=== PATIENT | female | born 1985 | race Caucasian/White ===

== ENCOUNTER 2017-12-07 05:22 | Inpatient (IN) | payer OTHER ==
[2017-12-07] MEDS ORDERED: Sodium Chloride 0.9% 2.5 ML Syringe FLUSH PRN (05:48)
[2017-12-07] MEDS ORDERED: Citric Acid/Sodium Citrate Solution 30 ML Cup PO ONE (05:48)
[2017-12-07] MEDS ORDERED: Sodium Chloride 0.9% 10 ML Syringe FLUSH PRN (05:48)
[2017-12-07] MEDS ORDERED: Lactated Ringers 1,000 ML IV SCH ×2 (06:00→09:00)
[2017-12-07] MEDS ORDERED: Oxytocin/0.9 % Sodium Chloride 30 UNIT/500 ML BAG IV SCH (06:00)
[2017-12-07] MEDS ORDERED: ceFAZolin 2 GM in Premix Bag 1 BAG IV ONE (07:30)
[2017-12-07] MEDS ORDERED: ceFAZolin/Dextrose,Iso-Osmotic 2 GM/50 ML Duplex Bag IV ONE (07:33)
[2017-12-07] MEDS ORDERED: Morphine PF 1 MG/ML Amp ONE (07:34)
[2017-12-07] MEDS ORDERED: Octyl 2-Cyanoacrylate 1 Tube ONE (07:36)
--- NOTE | 2017-12-07 07:47 | PCM.PREANE ---
Preanesthetic Assessment - Procedure Proposed Procedure: 2nd - Anesthesia/Transfusion/Family Hx Anesthesia History: Prior Anesthesia Without Reaction Family History of Anesthesia Reaction: No Transfusion History: No Prior Transfusion(s) Intubation History: Unknown - Review of Systems General: Other (, term) Pulmonary: No Symptoms Cardiovascular: No Symptoms Gastrointestinal: Other (GERD) Neurological: Headache (treated with nightly propranolol during ), Gait Disturbance (due to ) - Physical Assessment NPO Status Date: 12/06/17 NPO Status Time: 18:00 Height: 5 ft 7 in Weight: 9.171 oz ASA Class: 2 Mental Status: Alert & Oriented x3 Airway Class: Mallampati = 1 Dentition: Reports: Normal Dentition Thyro-Mental Finger Breadths: 3 Mouth Opening Finger Breadths: 3 ROM/Head Extension: Full Lungs: Clear to Auscultation, Normal Respiratory Effort Cardiovascular: Regular Rate, Regular Rhythm, No Murmurs Other: landmarks on back not easily palpated - Lab Values: Laboratory Last Values WBC 8.91 K/uL (4.0-11.0) 12/06/17 12:56 RBC 4.55 M/uL (4.30-5.90) 12/06/17 12:56 Hgb 13.1 g/dL (12.0-16.0) 12/06/17 12:56 Hct 38.2 % (36.0-46.0) 12/06/17 12:56 MCV 84.0 fL (80.0-98.0) 12/06/17 12:56 MCH 28.8 pg (27.0-32.0) 12/06/17 12:56 MCHC 34.3 g/dL (31.0-37.0) 12/06/17 12:56 RDW Std Deviation 40.1 fl (28.0-62.0) 12/06/17 12:56 RDW Coeff of Sunita 13 % (11.0-15.0) 12/06/17 12:56 Plt Count 258 K/uL (150-400) 12/06/17 12:56 MPV 9.00 fL (7.40-12.00) 12/06/17 12:56 Nucleated RBC % 0.0 /100WBC 12/06/17 12:56 Nucleated RBCs # 0 K/uL 09/03/18 12:56 Free T4 1.05 ng/dL (0.76-1.46) 12/06/17 12:56 TSH 3rd Generation 0.42 uIU/mL (0.36-3.74) 12/06/17 12:56 Blood Type O POSITIVE 12/06/17 12:56 Antibody Screen NEGATIVE 12/06/17 12:56 - Allergies Allergies/Adverse Reactions: Allergies Allergy/AdvReac Type Severity Reaction Status Date / Time No Known Allergies Allergy Verified 12/07/17 05:55 - Blood Blood Available: Yes Product(s) Available: PRBC (T and S) - Anesthesia Plan Pre-Op Medication Ordered: Antacids - Acknowledgements Anesthesia Type Planned: Spinal Pt an Appropriate Candidate for the Planned Anesthesia: Yes Alternatives and Risks of Anesthesia Discussed w Pt/Guardian: Yes Pt/Guardian Understands and Agrees with Anesthesia Plan: Yes PreAnesthesia Questionnaire HEENT History: Reports: Other (See Below) Other HEENT History: wears glasses Cardiovascular History: Reports: None Respiratory History: Reports: None Gastrointestinal History: Reports: GERD, Irritable Bowel Syndrome Other Gastrointestinal History: some heartburn during Genitourinary History: Reports: None [employer]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: Musculoskeletal History: Reports: Fracture Other Musculoskeletal History: hx of fx wrist Neurological History: Reports: Headaches, Chronic, Migraines Other Neuro History: started during - take propranolol Psychiatric History: Reports: Anxiety Endocrine/Metabolic History: Reports: Obesity/BMI 30+ Hematologic History: Reports: None Immunologic History: Reports: None Oncologic (Cancer) History: Reports: None Dermatologic History: Reports: Other (See Below) Other Dermatologic History: PUPPS - Infectious Disease History Infectious Disease History: Reports: Human Papilloma Virus (HPV) - Past Surgical History HEENT Surgical History: Reports: Adenoidectomy, Tonsillectomy Female Surgical History: Reports: Section - SUBSTANCE USE Smoking Status *Q: Never Smoker Recreational Drug Use History: No - HOME MEDS Home Medications: Home Meds Propranolol [Inderal LA] 180 mg PO BEDTIME 12/01/17 [History] Sertraline [Zoloft] 50 mg PO BEDTIME 12/01/17 [History] - CURRENT (IN HOUSE) MEDS Current Meds: Current Medications Cefazolin Sodium/Dextrose 2 gm (/ Premix) 50 mls @ 100 mls/hr IV ONETIME ONE Stop: 12/07/17 07:59 Lactated Ringer's (Ringers, Lactated) 1,000 mls @ 500 mls/hr IV BOLUS TOÑA Last Admin: 12/07/17 07:10 Dose: 999 mls/hr Oxytocin/Sodium Chloride (Oxytocin 30 Unit/500 Ml-Ns) 30 unit in 500 mls @ 250 mls/hr IV TITRATE TOÑA Sodium Chloride (Saline Flush) 10 ml FLUSH ASDIRECTED PRN PRN Reason: Keep Vein Open Sodium Chloride (Saline Flush) 2.5 ml FLUSH ASDIRECTED PRN PRN Reason: Keep Vein Open Discontinued Medications Cefazolin Sodium/Dextrose (Ancef) Confirm Administered Dose 2 gm IV .STK-MED ONE Stop: 12/07/17 07:34 Citric Acid/Sodium Citrate (Bicitra Solution) 30 ml PO ONETIME ONE Stop: 12/07/17 05:49 Morphine Sulfate (Duramorph Pf) Confirm Administered Dose 1 mg .ROUTE .STK-MED ONE Stop: 12/07/17 07:35 Octyl Cyanoacrylate (Dermabond Advance) Confirm Administered Dose 1 applic .ROUTE .STK-MED ONE Stop: 12/07/17 07:37
[2017-12-07] MEDS ORDERED: Oxytocin/0.9 % Sodium Chloride 30 UNIT/500 ML BAG ONE (07:48)
[2017-12-07] MEDS ORDERED: Naloxone 0.4 MG/ML Syringe IVPUSH PRN (08:43)
[2017-12-07] MEDS ORDERED: Nalbuphine 10 MG/1 ML Vial IVPUSH PRN (08:43)
[2017-12-07] MEDS ORDERED: diphenhydrAMINE 50 MG/ML SDV IVPUSH PRN ×2 (08:43→09:00)
[2017-12-07] MEDS ORDERED: fentaNYL 100 MCG/2 ML SDV IVPUSH PRN (08:44)
[2017-12-07] MEDS ORDERED: Acetaminophen/oxyCODONE 325-5 MG Tab PO PRN ×2 (08:44→09:00)
[2017-12-07] MEDS ORDERED: Ondansetron 4 MG/2 ML SDV IV PRN (09:00)
[2017-12-07] MEDS ORDERED: Lanolin 100% Cream 7 GM Tube TOP PRN (09:00)
[2017-12-07] MEDS ORDERED: Bisacodyl 10 MG Supp RECTAL PRN (09:00)
--- NOTE | 2017-12-07 09:10 | PCM.OPNOTE ---
- General Post-Op/Procedure Note Date of Surgery/Procedure: 12/07/17 Operative Procedure(s): Repeat low transverse section Findings: Live born female infant with Apgars 9 & 9 and a weight of 3200 grams. Normal pelvis. Omental adhesions to enter abdominal wall. Pre Op Diagnosis: 1. Term at 39 weeks and 4 days. 2. History of previous Post-Op Diagnosis: Same Anesthesia Technique: Spinal Primary Surgeon: Delmis Youssef Twill Cutter: Luis Martell Pathology: None Fluid Replacement, Intraop: 1,200 EBL in mLs: 600 Complications: None known Condition: Good
[2017-12-07] MEDS: Ketorolac 30 MG/ML SDV IVPUSH SCH ×3 (09:20→21:05)
--- NOTE | 2017-12-07 09:38 | PCM.POSTAN ---
POST ANESTHESIA ASSESSMENT - MENTAL STATUS Mental Status: Alert, Oriented - RESPIRATORY Respiratory Status: Respiratory Rate WNL, Airway Patent, O2 Saturation Stable - CARDIOVASCULAR CV Status: Pulse Rate WNL, Blood Pressure Stable - GASTROINTESTINAL GI Status: No Symptoms - PAIN Pain Score: 0 - POST OP HYDRATION Hydration Status: Adequate & Stable
[2017-12-07] MEDS: Docusate Sodium 100 MG Cap PO SCH ×2 (11:44→21:05)
--- NOTE | 2017-12-07 11:54 | OR ---
SURGEON: Delmis Youssef M.D. DATE OF PROCEDURE: 12/07/2017 PREOPERATIVE DIAGNOSES: 1. 39 and 4/7 week intrauterine . 2. Prior delivery, desires repeat section. 3. Group B strep negative. Rubella immune. POSTOPERATIVE DIAGNOSES: 1. 39 and 4/7 week intrauterine . 2. Prior delivery, desires repeat section. 3. Group B strep negative. Rubella immune. PROCEDURE: Repeat low-transverse section. LAB ASSISTANT: Luis Martell MS4. ANESTHESIA: Spinal. ESTIMATED BLOOD LOSS: 600 mL. FLUIDS: 1200 mL crystalloid. FINDINGS: Liveborn female, scores 9 and 9, weighing 3200 g. Normal-appearing uterus, tubes, and ovaries. Omental adhesions to the anterior abdominal wall were noted. COMPLICATIONS: None known. DISPOSITION: Stable to recovery. BRIEF HISTORY: This is a 32-year-old female, she is G3, P1-0-1-1 with 1 prior primary section in 2015 due to arrested labor. Her calculated likelihood of a successful was between 50% and 60%, therefore she desires to proceed with a repeat delivery with risks discussed including bleeding, infection, injury to bowel, bladder, blood vessels, ureters, or other organs, risk of thromboembolic event, risk of anesthesia. Understanding all these risks, she does desire to proceed. DESCRIPTION OF PROCEDURE: With the patient in left tilt position, under adequate spinal analgesia, the abdomen was prepped with chlorhexidine and draped in usual fashion for abdominal surgery. SCDs were in place. West catheter had been placed. She had received 2 g Ancef IV and an appropriate time-out was held. After documentation of adequate analgesia, the prior cicatrix was excised. The incision was carried through the subcutaneous tissue. The fascia, which was scored transversely in the midline. The fascial incision was extended laterally using curved Najera scissors. The fascia was elevated from the underlying rectus muscle using sharp and blunt dissection. The rectus muscles were in the midline. The peritoneum was entered sharply. A finger was placed into the peritoneal cavity. There were some omental adhesions laterally. Otherwise no adhesion of bowel or uterus. The incision was extended using sharp and blunt dissection. The Luis O retractor was placed. The visceroperitoneum over the lower uterine segment was incised to develop an adequate bladder flap. A transverse curvilinear incision was made over the lower uterine segment with a scalpel. A finger was used to enter the amniotic cavity, clear fluid was noted. The incision was extended using blunt dissection. The head was delivered via the uterine incision. The infant was bulb suctioned by nose and mouth. The infant was noted to be in the occiput posterior position. With fundal pressure, the infant was delivered via the uterine incision. The infant was a liveborn female, scores 9 and 9, weighing 3200 g. The cord was doubly clamped and cut and the infant was handed to the nurse in attendance at delivery. Cord blood was collected for cord ABGs as well as routine cord blood sampling. Pitocin was initiated after delivery of the infant with good uterine contraction. Placenta was removed by manual extraction. The uterus was cleaned with a dry laparotomy tape. The cervix was opened with ring forceps. The uterine incision was closed with running locked suture of 0 Polysorb followed by an imbricating layer of 0 Polysorb. Three additional [id number] sutures were placed for complete hemostasis. Inspection of the uterine incision revealed complete hemostasis. Paracolic gutters were cleaned and the tubes and ovaries appeared normal. Uterine incision was again inspected, it was hemostatic. Therefore the Luis retractor was removed. The uterine incision was finally again inspected, it remained completely hemostatic. The rectus muscle and peritoneum were loosely approximated in the midline using a running mattress suture of 0 Polysorb. The posterior aspect of the fascia was inspected and there were no areas of bleeding. The fascial incision was closed with a running suture of 0 Polysorb. Subcutaneous tissue was irrigated. Any areas of bleeding that were noted were cauterized. The skin was closed with a running subcuticular suture of 3-0 Monocryl followed by Dermabond. Final sponge, needle, and instrument counts were reported as correct. There were no known complications. The mother is in recovery in good condition. is in nursery in good condition. LILIANA SILVA /[id number]
[2017-12-07] MEDS: Propranolol 60 MG Cap.ER PO SCH (21:05)
[2017-12-07] MEDS: Sertraline 50 MG Tab PO SCH (21:05)
[2017-12-08] MEDS: Ketorolac 30 MG/ML SDV IVPUSH SCH ×2 (02:48→09:08)
--- NOTE | 2017-12-08 08:11 | PCM.PNPP ---
<Luis Martell - Last Filed: 12/08/17 08:22> - General Info Date of Service: 12/08/17 Subjective Update: Patient is doing well. Tired from feeding throughout the night and complains of moderate incisional pain. Last pain medication received at 3 or 4 AM. Functional Status: Reports: Pain Controlled, Tolerating Diet, Ambulating, Urinating - Review of Systems General: Reports: No Symptoms Pulmonary: Reports: No Symptoms Cardiovascular: Reports: No Symptoms Gastrointestinal: Reports: No Symptoms - General Info Date of Service: 12/08/17 - Patient Data Vital Signs - Most Recent: Last Vital Signs Temp 97.7 F 12/08/17 05:32 Pulse 69 12/08/17 06:00 Resp 14 12/08/17 06:00 BP 108/59 L 12/08/17 05:32 Pulse Ox 96 12/08/17 06:00 Weight - Most Recent: 260 g I&O - Last 24 Hours: Intake & Output 12/07/17 12/08/17 12/08/17 22:59 06:59 14:59 Intake Total 2375 Output Total 1300 Balance 1075 Lab Results - Last 24 Hours: Laboratory Results - last 24 hr 12/08/17 Range/Units 05:40 Hgb 10.6 L (12.0-16.0) g/dL Hct 31.9 L (36.0-46.0) % Med Orders - Current: Current Medications Bisacodyl (Dulcolax) 10 mg RECTAL ONETIME PRN PRN Reason: Constipation Diphenhydramine HCl (Benadryl) 25 mg IVPUSH Q4H PRN PRN Reason: Itching Stop: 12/08/17 08:43 Diphenhydramine HCl (Benadryl) 25 mg IVPUSH Q6H PRN PRN Reason: Itching or Nausea Last Admin: 12/07/17 11:25 Dose: 25 mg Docusate Sodium (Colace) 100 mg PO BID TOÑA Last Admin: 12/07/17 21:05 Dose: 100 mg Emollient Ointment (Lansinoh Hpa) 0 gm TOP ASDIRECTED PRN PRN Reason: Sore Nipples Last Admin: 12/08/17 04:25 Dose: 1 tube Fentanyl (Sublimaze) 25 - 50 mcg IVPUSH Q30M PRN PRN Reason: Pain Lactated Ringer's (Ringers, Lactated) 1,000 mls @ 125 mls/hr IV ASDIRECTED [facility] Last Admin: 12/07/17 14:12 Dose: 125 mls/hr Ibuprofen (Motrin) 800 mg PO Q8H PRN PRN Reason: mild pain or fever Ketorolac Tromethamine (Toradol) 30 mg IVPUSH Q6H TOÑA Stop: 12/08/17 09:01 Last Admin: 12/08/17 02:48 Dose: 30 mg Nalbuphine HCl (Nubain) 5 mg IVPUSH Q3H PRN PRN Reason: Pruritis Stop: 12/08/17 08:43 Naloxone HCl (Narcan) 0.1 mg IVPUSH ONETIME PRN PRN Reason: Other Stop: 12/08/17 08:43 Ondansetron HCl (Zofran) 4 mg IV Q4H PRN PRN Reason: Nausea/Vomiting Oxycodone/Acetaminophen (Percocet 325-5 Mg) 1 - 2 tab PO Q6H PRN PRN Reason: Pain Stop: 12/09/17 14:00 Oxycodone/Acetaminophen (Percocet 325-5 Mg) 1 tab PO Q4H PRN PRN Reason: Pain (moderate 4-6) Oxycodone/Acetaminophen (Percocet 325-5 Mg) 2 tab PO Q4H PRN PRN Reason: Pain (moderate 4-6) Propranolol HCl (Inderal La) 180 mg PO BEDTIME [facility] Last Admin: 12/07/17 21:05 Dose: 180 mg Sertraline HCl (Zoloft) 50 mg PO BEDTIME [facility] Last Admin: 12/07/17 21:05 Dose: 50 mg Discontinued Medications Cefazolin Sodium/Dextrose (Ancef) Confirm Administered Dose 2 gm IV .STK-MED ONE Stop: 12/07/17 07:34 Citric Acid/Sodium Citrate (Bicitra Solution) 30 ml PO ONETIME ONE Stop: 12/07/17 05:49 Last Admin: 12/07/17 07:48 Dose: 30 ml Cefazolin Sodium/Dextrose 2 gm (/ Premix) 50 mls @ 100 mls/hr IV ONETIME ONE Stop: 12/07/17 07:59 Last Admin: 12/07/17 20:03 Dose: Not Given Lactated Ringer's (Ringers, Lactated) 1,000 mls @ 500 mls/hr IV BOLUS TOÑA Last Admin: 12/07/17 07:10 Dose: 999 mls/hr Oxytocin/Sodium Chloride (Oxytocin 30 Unit/500 Ml-Ns) 30 unit in 500 mls @ 250 mls/hr IV TITRATE TOÑA Oxytocin/Sodium Chloride (Oxytocin 30 Unit/500 Ml-Ns) Confirm Administered Dose 30 unit in 500 mls @ as directed .ROUTE .STK-MED ONE Stop: 12/07/17 07:49 Last Admin: 12/07/17 20:03 Dose: Not Given Morphine Sulfate (Duramorph Pf) Confirm Administered Dose 1 mg .ROUTE .STK-MED ONE Stop: 12/07/17 07:35 Octyl Cyanoacrylate (Dermabond Advance) Confirm Administered Dose 1 applic .ROUTE .STK-MED ONE Stop: 12/07/17 07:37 Sodium Chloride (Saline Flush) 10 ml FLUSH ASDIRECTED PRN PRN Reason: Keep Vein Open Sodium Chloride (Saline Flush) 2.5 ml FLUSH ASDIRECTED PRN PRN Reason: Keep Vein Open - Infant Interaction Infant Disposition, : to Nursery Feeding: Continues to Breastfeed - Recovery Exam Fundal Tone: Firm Fundal Level: 2 Fingerbreadths Below Umbilicus Fundal Placement: Midline Lochia Amount: Scant Lochia Color: Rubra/Red Perineum Description: Intact, Minimal Bruising/Swelling Episiotomy/Laceration: None Bladder Status: Voiding Urinary Elimination: Voided - Exam General: Alert, Oriented Lungs: Clear to Auscultation, Normal Respiratory Effort Cardiovascular: Regular Rate, Regular Rhythm Extremities: Normal Inspection Wound/Incisions: Dressing Dry and Intact - Problem List Review Problem List Initiated/Reviewed/Updated: Yes - Assessment Assessment:: 32 year old female POD1 after repeat low transverse section - Plan Plan:: 1. Routine cares 2. Anticipate discharge home tomorrow or Wednesday <Delmis Youssef - Last Filed: 12/08/17 08:51> - Patient Data Vital Signs - Most Recent: Last Vital Signs Temp 36.5 C 12/08/17 05:32 Pulse 69 12/08/17 06:00 Resp 18 12/08/17 08:00 BP 108/59 L 12/08/17 05:32 Pulse Ox 96 12/08/17 08:15 I&O - Last 24 Hours: Intake & Output 12/07/17 12/08/17 12/08/17 22:59 06:59 14:59 Intake Total 2375 Output Total 1300 Balance 1075 Lab Results - Last 24 Hours: Laboratory Results - last 24 hr 12/08/17 Range/Units 05:40 Hgb 10.6 L (12.0-16.0) g/dL Hct 31.9 L (36.0-46.0) % Med Orders - Current: Current Medications Bisacodyl (Dulcolax) 10 mg RECTAL ONETIME PRN PRN Reason: Constipation Diphenhydramine HCl (Benadryl) 25 mg IVPUSH Q6H PRN PRN Reason: Itching or Nausea Last Admin: 12/07/17 11:25 Dose: 25 mg Docusate Sodium (Colace) 100 mg PO BID [facility] Last Admin: 12/07/17 21:05 Dose: 100 mg Emollient Ointment (Lansinoh Hpa) 0 gm TOP ASDIRECTED PRN PRN Reason: Sore Nipples Last Admin: 12/08/17 04:25 Dose: 1 tube Fentanyl (Sublimaze) 25 - 50 mcg IVPUSH Q30M PRN PRN Reason: Pain Lactated Ringer's (Ringers, Lactated) 1,000 mls @ 125 mls/hr IV ASDIRECTED [facility] Last Admin: 12/07/17 14:12 Dose: 125 mls/hr Ibuprofen (Motrin) 800 mg PO Q8H PRN PRN Reason: mild pain or fever Ketorolac Tromethamine (Toradol) 30 mg IVPUSH Q6H [facility] Stop: 12/08/17 09:01 Last Admin: 12/08/17 02:48 Dose: 30 mg Ondansetron HCl (Zofran) 4 mg IV Q4H PRN PRN Reason: Nausea/Vomiting Oxycodone/Acetaminophen (Percocet 325-5 Mg) 1 - 2 tab PO Q6H PRN PRN Reason: Pain Stop: 12/09/17 14:00 Oxycodone/Acetaminophen (Percocet 325-5 Mg) 1 tab PO Q4H PRN PRN Reason: Pain (moderate 4-6) Oxycodone/Acetaminophen (Percocet 325-5 Mg) 2 tab PO Q4H PRN PRN Reason: Pain (moderate 4-6) Propranolol HCl (Inderal La) 180 mg PO BEDTIME [facility] Last Admin: 12/07/17 21:05 Dose: 180 mg Sertraline HCl (Zoloft) 50 mg PO BEDTIME TOÑA Last Admin: 12/07/17 21:05 Dose: 50 mg Discontinued Medications Cefazolin Sodium/Dextrose (Ancef) Confirm Administered Dose 2 gm IV .STK-MED ONE Stop: 12/07/17 07:34 Citric Acid/Sodium Citrate (Bicitra Solution) 30 ml PO ONETIME ONE Stop: 12/07/17 05:49 Last Admin: 12/07/17 07:48 Dose: 30 ml Diphenhydramine HCl (Benadryl) 25 mg IVPUSH Q4H PRN PRN Reason: Itching Stop: 12/08/17 08:43 Cefazolin Sodium/Dextrose 2 gm (/ Premix) 50 mls @ 100 mls/hr IV ONETIME ONE Stop: 12/07/17 07:59 Last Admin: 12/07/17 20:03 Dose: Not Given Lactated Ringer's (Ringers, Lactated) 1,000 mls @ 500 mls/hr IV BOLUS [facility] Last Admin: 12/07/17 07:10 Dose: 999 mls/hr Oxytocin/Sodium Chloride (Oxytocin 30 Unit/500 Ml-Ns) 30 unit in 500 mls @ 250 mls/hr IV TITRATE TOÑA Oxytocin/Sodium Chloride (Oxytocin 30 Unit/500 Ml-Ns) Confirm Administered Dose 30 unit in 500 mls @ as directed .ROUTE .STK-MED ONE Stop: 12/07/17 07:49 Last Admin: 12/07/17 20:03 Dose: Not Given Morphine Sulfate (Duramorph Pf) Confirm Administered Dose 1 mg .ROUTE .STK-MED ONE Stop: 12/07/17 07:35 Nalbuphine HCl (Nubain) 5 mg IVPUSH Q3H PRN PRN Reason: Pruritis Stop: 12/08/17 08:43 Naloxone HCl (Narcan) 0.1 mg IVPUSH ONETIME PRN PRN Reason: Other Stop: 12/08/17 08:43 Octyl Cyanoacrylate (Dermabond Advance) Confirm Administered Dose 1 applic .ROUTE .STK-MED ONE Stop: 12/07/17 07:37 Sodium Chloride (Saline Flush) 10 ml FLUSH ASDIRECTED PRN PRN Reason: Keep Vein Open Sodium Chloride (Saline Flush) 2.5 ml FLUSH ASDIRECTED PRN PRN Reason: Keep Vein Open - Problem List & Annotations (1) Previous delivery affecting , delivered SNOMED Code(s): 288425860 Code(s): O34.219 - MATERNAL CARE FOR UNSP TYPE SCAR FROM PREVIOUS DEL Status: Acute Current Visit: Yes (2) delivery delivered SNOMED Code(s): 334555813 Code(s): O82 - ENCOUNTER FOR DELIVERY WITHOUT INDICATION Status: Acute Current Visit: No - Problem List Review Problem List Initiated/Reviewed/Updated: Yes - My Orders Last 24 Hours: My Active Orders 12/07/17 09:00 Ambulate [RC] PER UNIT ROUTINE Communication Order [RC] PER UNIT ROUTINE Communication Order [RC] PER UNIT ROUTINE Communication Order [RC] Per Unit Routine May Shower [RC] ASDIRECTED Notify Provider Intake and Out [RC] ASDIRECTED Notify Provider Vital Signs [RC] ASDIRECTED RT Incentive Spirometry [RC] Q2HWA Acetaminophen/oxyCODONE [Percocet 325-5 MG] 1 tab PO Q4H PRN Acetaminophen/oxyCODONE [Percocet 325-5 MG] 2 tab PO Q4H PRN Bisacodyl [Dulcolax] 10 mg RECTAL ONETIME PRN Docusate Sodium [Colace] 100 mg PO BID Ibuprofen [Motrin] 800 mg PO Q8H PRN Ketorolac [Toradol] 30 mg IVPUSH Q6H Lactated Ringers [Ringers, Lactated] 1,000 ml IV ASDIRECTED Lanolin [Lansinoh HPA] See Dose Instructions TOP ASDIRECTED PRN Ondansetron [Zofran] 4 mg IV Q4H PRN diphenhydrAMINE [Benadryl] 25 mg IVPUSH Q6H PRN Abdominal Binder [OM.PC] Urgent Assess Lochia [WOMSER] Per Unit Routine Assess Uterine Involution [WOMSER] Per Unit Routine Breast Pump [WOMSER] Per Unit Routine Peripheral IV Discontinue [OM.PC] Routine Sequential Compression Device [OM.PC] Per Unit Routine 12/07/17 21:00 Propranolol [Inderal LA] 180 mg PO BEDTIME Sertraline [Zoloft] 50 mg PO BEDTIME 12/07/17 Dinner Regular Diet [DIET] - Assessment Assessment:: patient was seen and examined by me and I agree with above. Stable POD 1 c- section. Thyroid labs are available and are normal, patient notified. - Plan Plan:: Agree with above.
[2017-12-08] MEDS: Docusate Sodium 100 MG Cap PO SCH ×2 (09:09→21:05)
--- NOTE | 2017-12-08 09:46 | PCM48HPAN ---
Post Anesthesia Note - EVALUATION WITHIN 48HRS OF ANESTHETIC Vital Signs in Normal Range: Yes Patient Participated in Evaluation: Yes Respiratory Function Stable: Yes Airway Patent: Yes Cardiovascular Function Stable: Yes Hydration Status Stable: Yes Pain Control Satisfactory: Yes Nausea and Vomiting Control Satisfactory: Yes Mental Status Recovered: Yes Resp Rate: 18
[2017-12-08] MEDS: Acetaminophen/oxyCODONE 325-5 MG Tab PO PRN ×3 (11:36→21:06)
[2017-12-08] MEDS: Ibuprofen 800 MG Tab PO PRN (16:37)
[2017-12-08] MEDS: Propranolol 60 MG Cap.ER PO SCH (21:05)
[2017-12-08] MEDS: Sertraline 50 MG Tab PO SCH (21:05)
[2017-12-09] MEDS: Ibuprofen 800 MG Tab PO PRN (01:07)
[2017-12-09] MEDS: Acetaminophen/oxyCODONE 325-5 MG Tab PO PRN (01:08)
--- NOTE | 2017-12-09 08:13 | PCM.PNPP ---
- General Info Date of Service: 12/09/17 Functional Status: Reports: Pain Controlled, Tolerating Diet, Ambulating, Urinating - Review of Systems General: Denies: Fever, Weakness, Fatigue Pulmonary: Denies: Shortness of Breath, Pleuritic Chest Pain, Cough Cardiovascular: Denies: Chest Pain, Palpitations, Dyspnea on Exertion Gastrointestinal: Denies: Abdominal Pain Genitourinary: Denies: Dysuria - General Info Date of Service: 12/09/17 - Patient Data Vital Signs - Most Recent: Last Vital Signs Temp 36.6 C 12/08/17 21:00 Pulse 78 12/08/17 21:00 Resp 16 12/08/17 21:00 BP 107/74 12/08/17 21:00 Pulse Ox 96 12/08/17 21:00 Weight - Most Recent: 260 g Med Orders - Current: Current Medications Bisacodyl (Dulcolax) 10 mg RECTAL ONETIME PRN PRN Reason: Constipation Diphenhydramine HCl (Benadryl) 25 mg IVPUSH Q6H PRN PRN Reason: Itching or Nausea Last Admin: 12/07/17 11:25 Dose: 25 mg Docusate Sodium (Colace) 100 mg PO BID [facility] Last Admin: 12/08/17 21:05 Dose: 100 mg Emollient Ointment (Lansinoh Hpa) 0 gm TOP ASDIRECTED PRN PRN Reason: Sore Nipples Last Admin: 12/08/17 04:25 Dose: 1 tube Fentanyl (Sublimaze) 25 - 50 mcg IVPUSH Q30M PRN PRN Reason: Pain Lactated Ringer's (Ringers, Lactated) 1,000 mls @ 125 mls/hr IV ASDIRECTED [facility] Last Admin: 12/07/17 14:12 Dose: 125 mls/hr Ibuprofen (Motrin) 800 mg PO Q8H PRN PRN Reason: mild pain or fever Last Admin: 12/09/17 01:07 Dose: 800 mg Ondansetron HCl (Zofran) 4 mg IV Q4H PRN PRN Reason: Nausea/Vomiting Oxycodone/Acetaminophen (Percocet 325-5 Mg) 1 - 2 tab PO Q6H PRN PRN Reason: Pain Stop: 12/09/17 14:00 Oxycodone/Acetaminophen (Percocet 325-5 Mg) 1 tab PO Q4H PRN PRN Reason: Pain (moderate 4-6) Last Admin: 12/09/17 01:08 Dose: 1 tab Oxycodone/Acetaminophen (Percocet 325-5 Mg) 2 tab PO Q4H PRN PRN Reason: Pain (moderate 4-6) Propranolol HCl (Inderal La) 180 mg PO BEDTIME [facility] Last Admin: 12/08/17 21:05 Dose: 180 mg Sertraline HCl (Zoloft) 50 mg PO BEDTIME [facility] Last Admin: 12/08/17 21:05 Dose: 50 mg Discontinued Medications Cefazolin Sodium/Dextrose (Ancef) Confirm Administered Dose 2 gm IV .STK-MED ONE Stop: 12/07/17 07:34 Citric Acid/Sodium Citrate (Bicitra Solution) 30 ml PO ONETIME ONE Stop: 12/07/17 05:49 Last Admin: 12/07/17 07:48 Dose: 30 ml Diphenhydramine HCl (Benadryl) 25 mg IVPUSH Q4H PRN PRN Reason: Itching Stop: 12/08/17 08:43 Cefazolin Sodium/Dextrose 2 gm (/ Premix) 50 mls @ 100 mls/hr IV ONETIME ONE Stop: 12/07/17 07:59 Last Admin: 12/07/17 20:03 Dose: Not Given Lactated Ringer's (Ringers, Lactated) 1,000 mls @ 500 mls/hr IV BOLUS [facility] Last Admin: 12/07/17 07:10 Dose: 999 mls/hr Oxytocin/Sodium Chloride (Oxytocin 30 Unit/500 Ml-Ns) 30 unit in 500 mls @ 250 mls/hr IV TITRATE [facility] Oxytocin/Sodium Chloride (Oxytocin 30 Unit/500 Ml-Ns) Confirm Administered Dose 30 unit in 500 mls @ as directed .ROUTE .STK-MED ONE Stop: 12/07/17 07:49 Last Admin: 12/07/17 20:03 Dose: Not Given Ketorolac Tromethamine (Toradol) 30 mg IVPUSH Q6H [facility] Stop: 12/08/17 09:01 Last Admin: 12/08/17 09:08 Dose: 30 mg Morphine Sulfate (Duramorph Pf) Confirm Administered Dose 1 mg .ROUTE .STK-MED ONE Stop: 12/07/17 07:35 Nalbuphine HCl (Nubain) 5 mg IVPUSH Q3H PRN PRN Reason: Pruritis Stop: 12/08/17 08:43 Naloxone HCl (Narcan) 0.1 mg IVPUSH ONETIME PRN PRN Reason: Other Stop: 12/08/17 08:43 Octyl Cyanoacrylate (Dermabond Advance) Confirm Administered Dose 1 applic .ROUTE .STK-MED ONE Stop: 12/07/17 07:37 Sodium Chloride (Saline Flush) 10 ml FLUSH ASDIRECTED PRN PRN Reason: Keep Vein Open Sodium Chloride (Saline Flush) 2.5 ml FLUSH ASDIRECTED PRN PRN Reason: Keep Vein Open - Interaction Infant Disposition, : at Bedside Interaction: Holding Infant Infant Feeding: Continues to Breastfeed Support Person: - Recovery Exam Fundal Tone: Firm Fundal Level: 1 Fingerbreadths Below Umbilicus Fundal Placement: Midline Lochia Amount: Scant Lochia Color: Rubra/Red Perineum Description: Intact, Minimal Bruising/Swelling Episiotomy/Laceration: None Bladder Status: Voiding Urinary Elimination: Voided - Exam General: Alert, Oriented Neck: Supple Lungs: Clear to Auscultation, Normal Respiratory Effort Cardiovascular: Regular Rate, Regular Rhythm GI/Abdominal Exam: Normal Bowel Sounds, Soft, No Distention, No Mass Extremities: Normal Inspection, Non-Tender, Normal Capillary Refill, Pedal Edema (1+) Skin: Warm, Dry, Intact Wound/Incisions: Healing Well Psy/Mental Status: Alert - Problem List & Annotations (1) delivery delivered SNOMED Code(s): 008626441 Code(s): O82 - ENCOUNTER FOR DELIVERY WITHOUT INDICATION Status: Acute Current Visit: No - Problem List Review Problem List Initiated/Reviewed/Updated: Yes - Assessment Assessment:: POD #2 s/p RLTCS. Minimal pain and lochia. Breast feeding well. Discharge home today. - Plan Plan:: Discharge instructions reviewed. Pelvic rest for 6 weeks. Continue PNV while breast feeding. Rx for percocet to use as needed for pain. Instructed patient to call if she develops fever greater than 101 or bleeding through a large pad an hour. No lifting greater than 10 lbs for 6 weeks. F/U with [facility] in 2 and 6 weeks.
[2017-12-09] MEDS: Docusate Sodium 100 MG Cap PO SCH (08:27)
[2017-12-09 08:50] VITALS: BP 112/68
== END 2017-12-09 10:45 | disposition home or self-care (01) | DRG 766 ==
LOC: MW.OB 05:22
PROVIDERS: ADMIT Obstetrics & Gynecology; ATTEND Obstetrics & Gynecology
PROC: 10D00Z1 Extraction of Products of Conception, Low, Open Approach (ICD-10-PCS; principal; 2017-12-07)
DX: O34.211 Maternal care for low transverse scar from previous cesarean delivery (principal); Z3A.39 39 weeks gestation of pregnancy; Z37.0 Single live birth
CPT/HCPCS: 36415; 59025; 84439; 84443; 85014; 85018; 85027; 86850; 86900; 86901; A9270-GY; J0690; J1200; J1885; J2274; J7120

== ENCOUNTER 2019-03-19 18:19 | Emergency (ER) | payer OTHER ==
[2019-03-19] MEDS ORDERED: Sodium Chloride 0.9% 1,000 ML IV ONE (19:00)
[2019-03-19 19:50] LABS: BLOOD UREA NITROGEN,BUN 6 mg/dL (7.0-18.0); CHLORIDE,CL 100 mmol/L (98-107); GLUCOSE RANDOM 97 mg/dL (74-106); POTASSIUM,K 3.6 mmol/L (3.5-5.1); SODIUM,NA 135 mmol/L (136-145)
--- NOTE | 2019-03-19 20:24 | EDM.PDOC ---
ED HPI GENERAL MEDICAL PROBLEM - General Chief Complaint: Gastrointestinal Problem Stated Complaint: VOMITING Time Seen by Provider: 03/19/19 19:20 Source of Information: Reports: Patient History Limitations: Reports: No Limitations - History of Present Illness INITIAL COMMENTS - FREE TEXT/NARRATIVE: HISTORY AND PHYSICAL: History of present illness: Patient is a 33-year-old female who presents to the ED today with concern of vomiting and one episode of diarrhea since yesterday. Patient states she is approximately 14 weeks in gestation and follows along with Dr. Youssef at [facility]. Patient states she did have an initial ultrasound and baby was in uterus with a heartbeat. Patient states she also has an appointment tomorrow with Dr. Youssef for OB check up. Patient states starting yesterday she started vomiting and started having abdominal pain around her umbilicus. Patient states that she had an umbilical hernia repair with Dr. Paez which is the area that started hurting with vomiting. Patient states that the abdominal pain is a little bit better today and she is only had one episode of vomiting today with one episode of diarrhea today. Patient states that since this afternoon she has been able to eat and drink and keep fluids down. Patient denies any vaginal bleeding or discharge or any other symptoms or concerns. Patient denies fever, chills, chest pain, shortness of breath, or cough. Denies headache, neck stiff ness, change in vision, syncope, or near syncope. Denies dysuria. Has not noted any blood in urine or stool. Patient has been eating and drinking appropriately. Review of systems: As per history of present illness and below otherwise all systems reviewed and negative. Past medical history: As per history of present illness and as reviewed below otherwise noncontributory. Surgical history: As per history of present illness and as reviewed below otherwise noncontributory. Social history: See social history for further information Family history: As per history of present illness and as reviewed below otherwise noncontributory. Physical exam: General: Patient is alert, oriented, and in no acute distress. Patient laying comfortably on exam table. HEENT: Atraumatic, normocephalic, pupils equal and reactive bilaterally, negative for conjunctival pallor or scleral icterus, mucous membranes moist, TMs normal bilaterally, throat clear, neck supple, nontender, trachea midline. No drooling or trismus noted. No meningeal signs. No hot potato voice noted. Lungs: Clear to auscultation, breath sounds equal bilaterally, chest nontender. Heart: S1S2, regular rate and rhythm without overt murmur Abdomen: Soft, nondistended, nontender. Scarring of umbilicus consistent with surgical history. No tenderness or masses felt of this area. Negative for masses or hepatosplenomegaly. Negative for costovertebral tenderness. Pelvis: Stable nontender. Genitourinary: Deferred. Rectal: Deferred. Skin: Intact, warm, dry. No lesions or rashes noted. Extremities: Atraumatic, negative for cords or calf pain. Neurovascular unremarkable. Neuro: Awake, alert, oriented. Cranial nerves II through XII unremarkable. Cerebellum unremarkable. Motor and sensory unremarkable throughout. Exam nonfocal. Notes: Patient has been able to tolerate by mouth intake in the ED today. Discussed the importance for follow-up with her LINK MACHINE OPERATOR provider and Dr. Paez as scheduled and as discussed. Voices understanding and is agreeable to plan of care. Denies any further questions or concerns at this time. Diagnostics: CBC, CMP, UA, lipase, influenza, 2nd trimester US, US limited Therapeutics: NS Prescription: None Impression: H/O vomiting H/O abdominal pain Plan: 1. Tylenol as needed for pain management. This is safe to use in . 2. Follow up with your LINK MACHINE OPERATOR in the morning as scheduled as discussed. Also follow up with Dr. Paez as discussed. 3. Return to the ED as needed and as discussed. Definitive disposition and diagnosis as appropriate pending reevaluation and review of above. abdominal Pain Score (Numeric/FACES): 4 - Related Data Allergies Allergy/AdvReac Type Severity Reaction Status Date / Time Dairy Products Allergy Stomach Verified 03/19/19 18:47 Upset Home Meds: Home Meds Sertraline [Zoloft] 100 mg PO DAILY 12/01/17 [History] Past Medical History HEENT History: Reports: Other (See Below) Other HEENT History: wears glasses Cardiovascular History: Reports: None Respiratory History: Reports: None Gastrointestinal History: Reports: GERD, Irritable Bowel Syndrome Other Gastrointestinal History: some heartburn during Genitourinary History: Reports: None LINK MACHINE OPERATOR History: Reports: Musculoskeletal History: Reports: Fracture Other Musculoskeletal History: hx of fx wrist Neurological History: Reports: Headaches, Chronic, Migraines Other Neuro History: started during - take propranolol Psychiatric History: Reports: Anxiety Endocrine/Metabolic History: Reports: Obesity/BMI 30+ Hematologic History: Reports: None Immunologic History: Reports: None Oncologic (Cancer) History: Reports: None Dermatologic History: Reports: Other (See Below) Other Dermatologic History: PUPPS - Infectious Disease History Infectious Disease History: Reports: None - Past Surgical History Head Surgeries/Procedures: Reports: None HEENT Surgical History: Reports: Adenoidectomy, Tonsillectomy Female Surgical History: Reports: Section Other Female Surgeries/Procedures: c/section x2 Social & Family History - Family History Family Medical History: Noncontributory HEENT: Reports: None Cardiac: Reports: Heart Valve Replacement, Hypertension Respiratory: Reports: None GI: Reports: None Musculoskeletal: Reports: Arthritis Psychiatric: Reports: Depression Endocrine/Metabolic: Reports: Diabetes, type II Oncologic: Reports: Ovarian - Tobacco Use Smoking Status *Q: Never Smoker - Recreational Drug Use Recreational Drug Use: No ED ROS GENERAL - Review of Systems Review Of Systems: Comprehensive ROS is negative, except as noted in HPI. ED EXAM, GENERAL - Physical Exam Exam: See Below (see dictation) Course - Vital Signs Last Recorded V/S: Last Vital Signs Temp 97.4 F 03/19/19 18:46 Pulse 97 03/19/19 18:46 Resp 20 03/19/19 18:46 BP 110/77 03/19/19 18:46 Pulse Ox 95 03/19/19 18:46 - Orders/Labs/Meds Labs: Laboratory Tests 03/19/19 03/19/19 03/19/19 Range/Units 19:00 19:25 19:25 WBC 6.93 (4.0-11.0) K/uL RBC 4.95 (4.30-5.90) M/uL Hgb 14.8 (12.0-16.0) g/dL Hct 41.7 (36.0-46.0) % MCV 84.2 (80.0-98.0) fL MCH 29.9 (27.0-32.0) pg MCHC 35.5 (31.0-37.0) g/dL RDW Std Deviation 38.0 (28.0-62.0) fl RDW Coeff of Sunita 13 (11.0-15.0) % Plt Count 209 (150-400) K/uL MPV 8.70 (7.40-12.00) fL Neut % (Auto) 84.3 H (48.0-80.0) % Lymph % (Auto) 9.1 L (16.0-40.0) % Iroquois % (Auto) 5.8 (0.0-15.0) % Eos % (Auto) 0.7 (0.0-7.0) % Baso % (Auto) 0.1 (0.0-1.5) % Neut # (Auto) 5.8 H (1.4-5.7) K/uL Lymph # (Auto) 0.6 (0.6-2.4) K/uL Iroquois # (Auto) 0.4 (0.0-0.8) K/uL Eos # (Auto) 0.1 (0.0-0.7) K/uL Baso # (Auto) 0.0 (0.0-0.1) K/uL Nucleated RBC % 0.0 /100WBC Nucleated RBCs # 0 K/uL Sodium 135 L (136-145) mmol/L Potassium 3.6 (3.5-5.1) mmol/L Chloride 100 (98-107) mmol/L Carbon Dioxide 24.0 (21.0-32.0) mmol/L BUN 6 L (7.0-18.0) mg/dL Creatinine 0.6 (0.6-1.0) mg/dL Est Cr Clr Drug Dosing 130.90 mL/min Estimated GFR (MDRD) > 60.0 ml/min Glucose 97 (74-106) mg/dL Calcium 8.9 (8.5-10.1) mg/dL Total Bilirubin 0.6 (0.2-1.0) mg/dL AST 13 L (15-37) IU/L ALT 19 (14-63) IU/L Alkaline Phosphatase 84 (46-116) U/L Total Protein 7.5 (6.4-8.2) g/dL Albumin 3.4 (3.4-5.0) g/dL Globulin 4.1 H (2.6-4.0) g/dL Albumin/Globulin Ratio 0.8 L (0.9-1.6) Lipase (73-393) U/L Urine Color YELLOW Urine Appearance CLEAR Urine pH 6.0 (5.0-8.0) Ur Specific Beaver >= 1.030 (1.001-1.035) Urine Protein NEGATIVE (NEGATIVE) mg/dL Urine Glucose (UA) NEGATIVE (NEGATIVE) mg/dL Urine Ketones NEGATIVE (NEGATIVE) mg/dL Urine Occult Blood NEGATIVE (NEGATIVE) Urine Nitrite NEGATIVE (NEGATIVE) Urine Bilirubin NEGATIVE (NEGATIVE) Urine Urobilinogen 0.2 (<2.0) EU/dL Ur Leukocyte Esterase NEGATIVE (NEGATIVE) 03/19/19 Range/Units 19:25 WBC (4.0-11.0) K/uL RBC (4.30-5.90) M/uL Hgb (12.0-16.0) g/dL Hct (36.0-46.0) % MCV (80.0-98.0) fL MCH (27.0-32.0) pg MCHC (31.0-37.0) g/dL RDW Std Deviation (28.0-62.0) fl RDW Coeff of Sunita (11.0-15.0) % Plt Count (150-400) K/uL MPV (7.40-12.00) fL Neut % (Auto) (48.0-80.0) % Lymph % (Auto) (16.0-40.0) % Iroquois % (Auto) (0.0-15.0) % Eos % (Auto) (0.0-7.0) % Baso % (Auto) (0.0-1.5) % Neut # (Auto) (1.4-5.7) K/uL Lymph # (Auto) (0.6-2.4) K/uL Iroquois # (Auto) (0.0-0.8) K/uL Eos # (Auto) (0.0-0.7) K/uL Baso # (Auto) (0.0-0.1) K/uL Nucleated RBC % /100WBC Nucleated RBCs # K/uL Sodium (136-145) mmol/L Potassium (3.5-5.1) mmol/L Chloride (98-107) mmol/L Carbon Dioxide (21.0-32.0) mmol/L BUN (7.0-18.0) mg/dL Creatinine (0.6-1.0) mg/dL Est Cr Clr Drug Dosing mL/min Estimated GFR (MDRD) ml/min Glucose (74-106) mg/dL Calcium (8.5-10.1) mg/dL Total Bilirubin (0.2-1.0) mg/dL AST (15-37) IU/L ALT (14-63) IU/L Alkaline Phosphatase (46-116) U/L Total Protein (6.4-8.2) g/dL Albumin (3.4-5.0) g/dL Globulin (2.6-4.0) g/dL Albumin/Globulin Ratio (0.9-1.6) Lipase 64 L (73-393) U/L Urine Color Urine Appearance Urine pH (5.0-8.0) Ur Specific Beaver (1.001-1.035) Urine Protein (NEGATIVE) mg/dL Urine Glucose (UA) (NEGATIVE) mg/dL Urine Ketones (NEGATIVE) mg/dL Urine Occult Blood (NEGATIVE) Urine Nitrite (NEGATIVE) Urine Bilirubin (NEGATIVE) Urine Urobilinogen (<2.0) EU/dL Ur Leukocyte Esterase (NEGATIVE) Meds: Medications Discontinued Medications Generic Name Dose Route Start Last Admin Trade Name Freq PRN Reason Stop Dose Admin Sodium Chloride 1,000 mls @ 999 mls/hr 03/19/19 19:00 03/19/19 19:20 Normal Saline IV 03/19/19 20:00 999 mls/hr .Bolus ONE Administration Departure - Departure Time of Disposition: 20:57 Disposition: Home, Self-Care 01 Clinical Impression: History of vomiting, History of abdominal pain - Discharge Information Referrals: Delmis Youssef MD [Primary Care Provider] - Forms: ED Department Discharge Additional Instructions: The following information is given to patients seen in the emergency department who are being discharged to home. This information is to outline your options for follow-up care. We provide all patients seen in our emergency department with a follow-up referral. The need for follow-up, as well as the timing and circumstances, are variable depending upon the specifics of your emergency department visit. If you don't have a primary care physician on staff, we will provide you with a referral. We always advise you to contact your personal physician following an emergency department visit to inform them of the circumstance of the visit and for follow-up with them and/or the need for any referrals to a consulting specialist. The emergency department will also refer you to a specialist when appropriate. This referral assures that you have the opportunity for follow-up care with a specialist. All of these measure are taken in an effort to provide you with optimal care, which includes your follow-up. Under all circumstances we always encourage you to contact your private physician who remains a resource for coordinating your care. When calling for follow-up care, please make the office aware that this follow-up is from your recent emergency room visit. If for any reason you are refused follow-up, please contact the [facility] Emergency Department at and asked to speak to the emergency department charge nurse. [facility] [address] [place] [id number] [facility] [address] [place] [id number] [facility] [address] [place] [id number] [facility] - General Surgery, Dr. Paez [facility] [address] [place] [address], [address] [place] [address] 1. Tylenol as needed for pain management. This is safe to use in . 2. Follow up with your LINK MACHINE OPERATOR in the morning as scheduled as discussed. Also follow up with Dr. Paez as discussed. 3. Return to the ED as needed and as discussed. Sepsis Event Note - Evaluation Sepsis Screening Result: No Definite Risk - Focused Exam Vital Signs: Vital Signs Temp Pulse Resp BP Pulse Ox 03/19/19 18:46 97.4 F 97 20 110/77 95 Date Exam was Performed: 03/19/19 Time Exam was Performed: 20:57
--- NOTE | 2019-03-19 20:48 | US ---
INDICATION: with paraumbilical pain. History of hernia repair. TECHNIQUE: Ultrasound OB pelvis transabdominal. Real-time baird-scale imaging of the fetus was performed as well as color Doppler and spectral Doppler analysis of the umbilical artery. COMPARISON: None. FINDINGS: Sonographic imaging demonstrates a single living intrauterine gestation. Fetus demonstrates a regular cardiac rate of 181 beats per minute. Fetus has a cephalic orientation. The placenta lies posterior without evidence of placenta previa. Amniotic fluid volume appears normal. Biometry: Biparietal diameter: 2.4 cm, 14 weeks 1 day. Head circumference: 9.0 cm, 14 weeks 1 day. Abdominal circumference: 7.2 cm, 13 weeks 6 days. Femoral length: 1.3 cm, 13 weeks 6 days. The composite ultrasound gestational age is calculated at 14 weeks 0 days with an estimated sonographic due date of September 17, 2019. The weight is estimated at 84 grams, the 39th percentile. Maternal kidneys show no hydronephrosis. No sign of recurrent hernia. Maternal ovaries are normal. IMPRESSION: 1.Single viable intrauterine with an estimated ultrasound age of 14 weeks 0 days. 2.No abnormality to explain pain. Dictated by Garry Glass MD @ Mar 19 2019 8:38PM Signed by Dr. Garry Glass @ Mar 19 2019 8:46PM
[2019-03-19 21:17] VITALS: BP 130/74; PULSE 73
== END 2019-03-19 21:18 | disposition home or self-care (01) ==
LOC: MW.ED 18:19
DX: O21.9 Vomiting of pregnancy, unspecified (principal); O99.89 Other specified diseases and conditions complicating pregnancy, childbirth and the puerperium; R10.9 Unspecified abdominal pain; O99.281 Endocrine, nutritional and metabolic diseases complicating pregnancy, first trimester; E66.9 Obesity, unspecified; O99.341 Other mental disorders complicating pregnancy, first trimester; F41.9 Anxiety disorder, unspecified; Z3A.14 14 weeks gestation of pregnancy; Z91.011 Allergy to milk products; Z79.899 Other long term (current) drug therapy; Z68.38 Body mass index [BMI] 38.0-38.9, adult
CPT/HCPCS: 36415; 76805; 80053; 81003; 83690; 85025; 87804; 96360; 96361; 99284; J7030

== ENCOUNTER 2019-09-12 05:08 | Inpatient (IN) | payer OTHER ==
[2019-09-12] MEDS ORDERED: Lidocaine 1% 50 ML MDV INJECT PRN (05:14)
[2019-09-12] MEDS ORDERED: ceFAZolin 2 GM in Premix Bag 1 BAG IV ONE (05:14)
[2019-09-12] MEDS ORDERED: Methylergonovine 0.2 MG/1 ML Amp IM PRN ×2 (05:14→08:45)
[2019-09-12] MEDS ORDERED: Sodium Chloride 0.9% 2.5 ML Syringe FLUSH PRN (05:14)
[2019-09-12] MEDS ORDERED: Butorphanol 1 MG/ML SDV IVPUSH PRN (05:14)
[2019-09-12] MEDS ORDERED: Carboprost Tromethamine 250 MCG/1 ML Amp IM PRN (05:14)
[2019-09-12] MEDS ORDERED: Sodium Chloride 0.9% 10 ML SDV IV PRN (05:14)
[2019-09-12] MEDS ORDERED: Citric Acid/Sodium Citrate Solution 30 ML Cup PO ONE (05:14)
[2019-09-12] MEDS ORDERED: Tranexamic Acid 1,000 MG in Sodium Chloride 0.9% 100 ML IV PRN ×2 (05:14→08:45)
[2019-09-12] MEDS ORDERED: Sodium Chloride 0.9% 10 ML Syringe FLUSH PRN (05:14)
[2019-09-12] MEDS ORDERED: Misoprostol 200 MCG Tab PO PRN (05:14)
[2019-09-12] MEDS ORDERED: Nalbuphine 10 MG/1 ML Vial IVPUSH PRN ×2 (05:14→08:24)
[2019-09-12] MEDS ORDERED: Water For Irrigation,Sterile 1,000 ML Container IRR PRN (05:14)
[2019-09-12] MEDS ORDERED: Lactated Ringers 1,000 ML IV SCH ×2 (05:15→08:45)
[2019-09-12] MEDS ORDERED: Oxytocin/0.9 % Sodium Chloride 30 UNIT/500 ML BAG IV SCH ×2 (05:15)
[2019-09-12] MEDS: Lactated Ringers 1,000 ML IV SCH ×3 (05:41→07:51)
[2019-09-12] MEDS ORDERED: Ondansetron 4 MG/2 ML SDV ONE (07:06)
[2019-09-12] MEDS ORDERED: Ketorolac 30 MG/ML SDV ONE (07:06)
[2019-09-12] MEDS ORDERED: Sodium Chloride 0.9% 20 ML ONE (07:06)
[2019-09-12] MEDS ORDERED: Morphine PF 10 MG/10 ML SDV ONE (07:06)
[2019-09-12] MEDS ORDERED: ceFAZolin 1 GM Vial ONE (07:06)
[2019-09-12] MEDS ORDERED: Oxytocin 10 Units/1 ML SDV ONE (07:06)
[2019-09-12] MEDS ORDERED: Phenylephrine 1% 10 MG/ML SDV ONE (07:07)
[2019-09-12] MEDS ORDERED: Citric Acid/Sodium Citrate Solution 30 ML Cup ONE (07:35)
--- NOTE | 2019-09-12 07:40 | PCM.PREANE ---
Preanesthetic Assessment - Anesthesia/Transfusion/Family Hx Anesthesia History: Prior Anesthesia Without Reaction (prior c/s x 2) Family History of Anesthesia Reaction: No Transfusion History: No Prior Transfusion(s) Intubation History: Unknown - Review of Systems General: No Symptoms Pulmonary: No Symptoms Cardiovascular: No Symptoms Gastrointestinal: No Symptoms Neurological: No Symptoms Other: Reports: None - Physical Assessment NPO Status Date: 09/11/19 Height: 5 ft 7 in Weight: 122.016 kg ASA Class: 2 Mental Status: Alert & Oriented x3 Airway Class: Mallampati = 2 Dentition: Reports: Normal Dentition ROM/Head Extension: Full Lungs: Clear to Auscultation, Normal Respiratory Effort Cardiovascular: Regular Rate, Regular Rhythm - Lab Values: Laboratory Last Values WBC 8.66 K/uL (4.0-11.0) 09/11/19 09:39 RBC 4.66 M/uL (4.30-5.90) 09/11/19 09:39 Hgb 13.8 g/dL (12.0-16.0) 09/11/19 09:39 Hct 40.8 % (36.0-46.0) 09/11/19 09:39 MCV 87.6 fL (80.0-98.0) 09/11/19 09:39 MCH 29.6 pg (27.0-32.0) 09/11/19 09:39 MCHC 33.8 g/dL (31.0-37.0) 09/11/19 09:39 RDW Std Deviation 41.9 fl (28.0-62.0) 09/11/19 09:39 RDW Coeff of Sunita 13 % (11.0-15.0) 09/11/19 09:39 Plt Count 258 K/uL (150-400) 09/11/19 09:39 MPV 9.00 fL (7.40-12.00) 09/11/19 09:39 Nucleated RBC % 0.0 /100WBC 09/11/19 09:39 Nucleated RBCs # 0 K/uL 09/11/19 09:39 SARS Virus RNA (PCR) NEGATIVE (NEGATIVE) 09/11/19 09:42 Blood Type O POSITIVE 09/11/19 09:39 Antibody Screen NEGATIVE 09/11/19 09:39 - Allergies Allergies/Adverse Reactions: Allergies Allergy/AdvReac Type Severity Reaction Status Date / Time No Known Allergies Allergy Verified 09/06/19 11:48 - Blood Blood Available: No - Anesthesia Plan Pre-Op Medication Ordered: None - Acknowledgements Anesthesia Type Planned: Spinal Pt an Appropriate Candidate for the Planned Anesthesia: Yes Alternatives and Risks of Anesthesia Discussed w Pt/Guardian: Yes Pt/Guardian Understands and Agrees with Anesthesia Plan: Yes PreAnesthesia Questionnaire HEENT History: Reports: Other (See Below) Other HEENT History: wears glasses Cardiovascular History: Reports: None Respiratory History: Reports: None Gastrointestinal History: Reports: GERD, Irritable Bowel Syndrome Other Gastrointestinal History: some heartburn during Genitourinary History: Reports: None [employer] History: Reports: Musculoskeletal History: Reports: Back Pain, Chronic, Fracture Other Musculoskeletal History: hx of fx wrist Neurological History: Reports: Migraines Psychiatric History: Reports: Anxiety, Depression Endocrine/Metabolic History: Reports: Obesity/BMI 30+ Hematologic History: Reports: None Immunologic History: Reports: None Oncologic (Cancer) History: Reports: None Dermatologic History: Reports: None - Infectious Disease History Infectious Disease History: Reports: Chicken Pox - Past Surgical History Head Surgeries/Procedures: Reports: None HEENT Surgical History: Reports: Adenoidectomy, Oral Surgery, Tonsillectomy Cardiovascular Surgical History: Reports: None Respiratory Surgical History: Reports: None GI Surgical History: Reports: Hernia, Abdominal Other GI Surgeries/Procedures: hx umbilical hernia repair Female Surgical History: Reports: Section Other Female Surgeries/Procedures: c/section x2 Endocrine Surgical History: Reports: None Neurological Surgical History: Reports: None Musculoskeletal Surgical History: Reports: None Oncologic Surgical History: Reports: None Dermatological Surgical History: Reports: None - SUBSTANCE USE Smoking Status *Q: Never Smoker Second Hand Smoke Exposure: No Recreational Drug Use History: No - HOME MEDS Home Medications: Home Meds Magnesium Oxide 200 mg PO DAILY 09/06/19 [History] Omeprazole Magnesium [Prilosec Otc] 20 mg PO DAILY 09/06/19 [History] Pnv No.95/Ferrous Fum/Folic AC [ Vitamin Tablet] 1 tab PO DAILY [History] Venlafaxine HCl 75 mg PO DAILY 09/06/19 [History] - CURRENT (IN HOUSE) MEDS Current Meds: Current Medications Butorphanol Tartrate (Stadol) 1 mg IVPUSH Q1H PRN PRN Reason: Pain Carboprost Tromethamine (Hemabate Ds) 250 mcg IM ASDIRECTED PRN PRN Reason: Post Hemorrhage Lactated Ringer's (Ringers, Lactated) 1,000 mls @ 500 mls/hr IV BOLUS TOÑA Last Admin: 09/12/19 07:01 Dose: 500 mls/hr Lactated Ringer's (Ringers, Lactated) 1,000 mls @ 150 mls/hr IV ASDIRECTED TOÑA Oxytocin/Sodium Chloride (Oxytocin 30 Unit/500 Ml-Ns) 30 unit in 500 mls @ 250 mls/hr IV TITRATE TOÑA Oxytocin/Sodium Chloride (Oxytocin 30 Unit/500 Ml-Ns) 30 unit in 500 mls @ 999 mls/hr IV TITRATE TOÑA Tranexamic Acid 1,000 mg/ (Sodium Chloride) 110 mls @ 660 mls/hr IV ONETIME PRN PRN Reason: Bleeding Lidocaine HCl (Xylocaine 1%) 50 ml INJECT ONETIME PRN PRN Reason: Laceration repair Methylergonovine Maleate (Methergine) 0.2 mg IM ASDIRECTED PRN PRN Reason: Post Hemorrhage Misoprostol (Cytotec) 200 mcg PO ONETIME PRN PRN Reason: Post Hemorrhage Nalbuphine HCl (Nubain) 10 mg IVPUSH Q1H PRN PRN Reason: Pain (severe 7-10) Sodium Chloride (Saline Flush) 10 ml FLUSH ASDIRECTED PRN PRN Reason: Keep Vein Open Sodium Chloride (Saline Flush) 2.5 ml FLUSH ASDIRECTED PRN PRN Reason: Keep Vein Open Sodium Chloride (Normal Saline) 10 ml IV ASDIRECTED PRN PRN Reason: IV Use Sterile Water (Sterile Water For Irrigation) 1,000 ml IRR ASDIRECTED PRN PRN Reason: delivery Discontinued Medications Cefazolin Sodium (Ancef) Confirm Administered Dose 2 gm .ROUTE .STK-MED ONE Stop: 09/12/19 07:07 Citric Acid/Sodium Citrate (Bicitra Solution) 30 ml PO ONETIME ONE Stop: 09/12/19 05:15 Citric Acid/Sodium Citrate (Bicitra Solution) Confirm Administered Dose 30 ml .ROUTE .STK-MED ONE Stop: 09/12/19 07:36 Cefazolin Sodium/Dextrose 2 gm (/ Premix) 50 mls @ 100 mls/hr IV ONETIME ONE Stop: 09/12/19 05:43 Sodium Chloride (Normal Saline) Confirm Administered Dose 20 mls @ as directed .ROUTE .STK-MED ONE Stop: 09/12/19 07:07 Ketorolac Tromethamine (Toradol) Confirm Administered Dose 30 mg .ROUTE .STK- MED ONE Stop: 09/12/19 07:07 Morphine Sulfate (Duramorph Pf) Confirm Administered Dose 10 mg .ROUTE .STK-MED ONE Stop: 09/12/19 07:07 Ondansetron HCl (Zofran) Confirm Administered Dose 4 mg .ROUTE .STK-MED ONE Stop: 09/12/19 07:07 Oxytocin (Pitocin) Confirm Administered Dose 20 unit .ROUTE .STK-MED ONE Stop: 09/12/19 07:07 Phenylephrine HCl (Perry-Synephrine) Confirm Administered Dose 10 mg .ROUTE .STK- MED ONE Stop: 09/12/19 07:08
[2019-09-12] MEDS ORDERED: Octyl 2-Cyanoacrylate 1 Tube ONE (07:43)
[2019-09-12] MEDS ORDERED: fentaNYL 100 MCG/2 ML SDV IVPUSH PRN (08:24)
[2019-09-12] MEDS ORDERED: Acetaminophen/oxyCODONE 325-5 MG Tab PO PRN (08:24)
--- NOTE | 2019-09-12 08:43 | PCM.OPNOTE ---
- General Post-Op/Procedure Note Date of Surgery/Procedure: 09/12/19 Operative Procedure(s): repeat low transverse Findings: Liveborn female 8/9 weight pending, normal uterus, omentum adherent to the anterior abdominal wall, possible divertulosis of the descending colon, right tube adherent to uterine serosa. Pre Op Diagnosis: 39 weeks, previous , desires repeat Post-Op Diagnosis: Same Anesthesia Technique: Spinal Primary Surgeon: Delmis Youssef Secondary Surgeon: Evie Najera Anesthesia Provider: Emre Bauer Lane Attendant: Alvin Rubio Pathology: none Fluid Replacement, Intraop: 900 Output, Urine Amount: 100 EBL in mLs: 300 Complications: None Known Condition: Good
[2019-09-12] MEDS ORDERED: diphenhydrAMINE 50 MG/ML SDV IVPUSH PRN (08:45)
[2019-09-12] MEDS ORDERED: Lanolin 100% Cream 7 GM Tube TOP PRN (08:45)
[2019-09-12] MEDS ORDERED: Oxytocin 10 Units/1 ML SDV IM PRN (08:45)
[2019-09-12] MEDS ORDERED: Ondansetron 4 MG/2 ML SDV IVPUSH PRN (08:45)
[2019-09-12] MEDS ORDERED: Oxytocin/Lactated Ringers 30 UNIT/500 ML BAG IV SCH (08:45)
[2019-09-12] MEDS ORDERED: Bisacodyl 10 MG Supp RECTAL PRN (08:45)
[2019-09-12] MEDS ORDERED: Misoprostol 200 MCG Tab RECTAL PRN (08:45)
[2019-09-12] MEDS ORDERED: Magnesium Oxide 400 MG Tab PO SCH (09:00)
[2019-09-12] MEDS ORDERED: Venlafaxine 75 MG Cap.ER PO SCH (09:00)
--- NOTE | 2019-09-12 10:03 | PCM.POSTAN ---
POST ANESTHESIA ASSESSMENT - MENTAL STATUS Mental Status: Alert, Oriented - RESPIRATORY Respiratory Status: Respiratory Rate WNL, Airway Patent, O2 Saturation Stable - CARDIOVASCULAR CV Status: Pulse Rate WNL, Blood Pressure Stable - GASTROINTESTINAL GI Status: No Symptoms - PAIN Pain Score: 0 - POST OP HYDRATION Hydration Status: Adequate & Stable - OBSERVATIONS Free Text/Narrative:: No complaints. No pain. Can't wiggle her toes yet but has thigh movements starting.
--- NOTE | 2019-09-12 13:55 | OR ---
SURGEON: Delmis Youssef M.D. DATE OF PROCEDURE: 09/12/2019 PREOPERATIVE DIAGNOSES: A 39-week intrauterine , prior delivery, declines vaginal trial of labor, polyhydramnios, suspected macrosomia. POSTOPERATIVE DIAGNOSES: A 39-week intrauterine , prior delivery, declines vaginal trial of labor, polyhydramnios, suspected macrosomia. PROCEDURE: Repeat low-transverse section. PRIMARY SURGEON: Delmis Youssef MD. ANESTHESIA: Spinal. ESTIMATED BLOOD LOSS: 300 mL. FLUIDS: 900 mL of crystalloid. URINE OUTPUT: 100 mL. FINDINGS: Liveborn female, score of 8 and 9, weighing 3930 g. Normal-appearing uterus, tubes, and ovaries, save the right tube was attached to the lower uterine serosa. There were omental adhesions over the lower abdomen attached to the anterior abdominal wall. COMPLICATIONS: None known. DISPOSITION: Stable to Recovery. BRIEF HISTORY: This is a 34-year-old female, G5, P2-0-2-2, presents at 39 weeks' gestation for a repeat section x3. She has had fairly uncomplicated care. She was on baby aspirin for prophylaxis for history of preeclampsia, however, did not develop preeclampsia during this . She also has polyhydramnios with borderline macrosomia. She desires to proceed with a repeat delivery with risks discussed including bleeding; infection; injury to bowel, bladder, blood vessels, ureters, or other organs; risk of thromboembolic event; risk of anesthesia. Understanding all these risks, she does desire to proceed. DESCRIPTION OF PROCEDURE: With the patient in left tilt position, under adequate spinal analgesia, the abdomen was prepped with chlorhexidine and draped in usual fashion for abdominal surgery. SCDs were in place. West catheter was placed and an appropriate time- out was held. She did receive 2 g of Ancef preoperatively. After documentation of adequate analgesia, the prior cicatrix was excised and the incision was carried through the subcutaneous tissue to the fascia which was scored transversely in the midline. The fascia was elevated from the underlying rectus muscle using sharp and blunt dissection. The rectus muscles were using hemostats and a finger was used to enter the peritoneal cavity. Omental adhesions were noted and these were lysed using electrocautery to allow access to the uterus. The tube was had filmy adhesions to the right lower uterine serosa and these were also lysed with electrocautery. There were some filmy adhesions between the bladder and the lower uterine segment which were incised. The Luis O retractor was then placed. The bladder was well out of the field of dissection, so additional bladder flap development was not required. A transverse curvilinear incision was made over the lower uterine segment with a scalpel. A finger was used to enter the amniotic cavity. The clear fluid was noted. The incision was extended using blunt dissection. With fundal pressure, the head and body were delivered via the uterine incision. The infant was bulb suctioned by nose and mouth and the cord was clamped x2 after it had ceased to pulsate. The infant was a liveborn female, score of 8 and 9, weighing 3930 g. Cord blood was collected for cord ABGs as well as routine cord blood sampling. Pitocin was initiated after delivery of the infant to assist with delivery of the placenta, which was delivered with fundal massage and manual extraction. The uterus was cleaned with a dry laparotomy tape. The cervix was opened with ring forceps. The uterine incision was closed with a running lock suture of 0 Polysorb followed by an imbricating layer of 0 Polysorb. Once hemostasis of the incision was confirmed, the pericolic gutters and posterior cul-de-sac were irrigated. Note was made of some diverticular changes of the descending colon. The Luis O retractor was removed. The rectus muscle and peritoneum were loosely approximated in the midline using a running mattress suture of 0 Polysorb. Noted that the omental adhesions on the right side of the abdomen were not completely lysed and remained. The posterior aspect of the fascia was inspected and was hemostatic. The fascial incision was closed with a running suture of 0 Polysorb. Subcutaneous tissue was irrigated. Any areas of bleeding that were noted were cauterized. The skin was closed with a running subcuticular suture of 3-0 Monocryl followed by Dermabond. Final sponge, needle, and instrument counts were reported as correct. There were no known complications. Mother and baby are in Recovery in good condition. LILIANA / SHIRA /[id number]
[2019-09-12] MEDS: Ketorolac 30 MG/ML SDV IVPUSH SCH ×2 (15:16→20:58)
[2019-09-12] MEDS: Magnesium Oxide 400 MG Tab PO SCH (15:51)
[2019-09-12] MEDS: Venlafaxine 75 MG Cap.ER PO SCH (15:51)
[2019-09-12] MEDS: Docusate Sodium 100 MG Cap PO SCH (20:58)
[2019-09-13] MEDS: Ketorolac 30 MG/ML SDV IVPUSH SCH ×2 (02:48→08:44)
--- NOTE | 2019-09-13 07:29 | PCM48HPAN ---
Post Anesthesia Note - EVALUATION WITHIN 48HRS OF ANESTHETIC Vital Signs in Normal Range: Yes Patient Participated in Evaluation: Yes Respiratory Function Stable: Yes Airway Patent: Yes Cardiovascular Function Stable: Yes Hydration Status Stable: Yes Pain Control Satisfactory: Yes Nausea and Vomiting Control Satisfactory: Yes Mental Status Recovered: Yes Vital Signs: Last Vital Signs Temp 35.9 C L 09/13/19 04:00 Pulse 82 09/13/19 04:00 Resp 16 09/13/19 07:00 BP 122/70 09/13/19 04:00 Pulse Ox 97 09/13/19 07:00
[2019-09-13] MEDS: Omeprazole 20 MG Cap.CR PO SCH (07:53)
--- NOTE | 2019-09-13 08:02 | PCM.PNPP ---
- General Info Date of Service: 09/13/19 Functional Status: Reports: Pain Controlled, Tolerating Diet, Ambulating, Urinating - Review of Systems General: Reports: No Symptoms HEENT: Reports: No Symptoms Pulmonary: Reports: No Symptoms Cardiovascular: Reports: No Symptoms Gastrointestinal: Reports: No Symptoms Genitourinary: Reports: No Symptoms Musculoskeletal: Reports: No Symptoms Skin: Reports: No Symptoms Neurological: Reports: No Symptoms Psychiatric: Reports: No Symptoms - Patient Data Vital Signs - Most Recent: Last Vital Signs Temp 35.5 C L 09/13/19 07:35 Pulse 90 09/13/19 07:35 Resp 14 09/13/19 07:35 BP 142/87 H 09/13/19 07:35 Pulse Ox 96 09/13/19 07:35 Weight - Most Recent: 122.016 kg I&O - Last 24 Hours: Intake & Output 09/12/19 09/13/19 09/13/19 22:59 06:59 14:59 Intake Total 2000 Output Total 350 2200 Balance -350 -200 Lab Results - Last 24 Hours: Laboratory Results - last 24 hr 09/12/19 09/13/19 Range/Units 08:18 05:50 Hgb 12.0 (12.0-16.0) g/dL Hct 36.8 (36.0-46.0) % Cord ABG pH 7.256 (7.18-7.38) Cord ABG Base Excess -1 H (-10--2) Cord VBG pH 7.315 (7.25-7.45) Cord VBG Base Excess -1 H (-10--2) Med Orders - Current: Current Medications Bisacodyl (Dulcolax) 10 mg RECTAL ONETIME PRN PRN Reason: Constipation Diphenhydramine HCl (Benadryl) 25 mg IVPUSH Q6H PRN PRN Reason: Itching or Nausea Docusate Sodium (Colace) 100 mg PO BID TOÑA Last Admin: 09/12/19 20:58 Dose: 100 mg Emollient Ointment (Lansinoh Hpa) 0 gm TOP ASDIRECTED PRN PRN Reason: Sore Nipples Fentanyl (Sublimaze) 50 mcg IVPUSH Q5M PRN PRN Reason: Pain (severe 7-10) Stop: 09/13/19 08:24 Lactated Ringer's (Ringers, Lactated) 1,000 mls @ 125 mls/hr IV ASDIRECTED [facility] Last Admin: 09/12/19 10:46 Dose: 125 mls/hr Oxytocin/Lactated Ringer's (Pitocin In Lr 30 Units/500 Ml) 30 unit in 500 mls @ 999 mls/hr IV TITRATE [facility]; Protocol Tranexamic Acid 1,000 mg/ (Sodium Chloride) 110 mls @ 660 mls/hr IV ONETIME PRN PRN Reason: Bleeding Ibuprofen (Motrin) 800 mg PO Q8H PRN PRN Reason: mild pain or fever Ketorolac Tromethamine (Toradol) 30 mg IVPUSH Q6H [facility] Stop: 09/13/19 08:46 Last Admin: 09/13/19 02:48 Dose: 30 mg Magnesium Oxide (Magnesium Oxide) 400 mg PO DAILY [facility] Last Admin: 09/12/19 15:51 Dose: 400 mg Methylergonovine Maleate (Methergine) 0.2 mg IM ONETIME PRN PRN Reason: Excessive Vaginal Bleeding Misoprostol (Cytotec) 1,000 mcg RECTAL ONETIME PRN PRN Reason: excessive bleeding Nalbuphine HCl (Nubain) 2.5 mg IVPUSH Q3H PRN PRN Reason: Pruritis Stop: 09/13/19 08:24 Omeprazole (Omeprazole) 20 mg PO ACBREAKFAST [facility] Last Admin: 09/13/19 07:53 Dose: 20 mg Ondansetron HCl (Zofran) 4 mg IVPUSH Q4H PRN PRN Reason: Nausea/Vomiting Oxycodone/Acetaminophen (Percocet 325-5 Mg) 1 tab PO ONETIME PRN PRN Reason: Pain (moderate 4-6) Oxycodone/Acetaminophen (Percocet 325-5 Mg) 1 tab PO Q4H PRN PRN Reason: Pain (moderate 4-6) Oxycodone/Acetaminophen (Percocet 325-5 Mg) 2 tab PO Q4H PRN PRN Reason: Pain (moderate 4-6) Oxytocin (Pitocin) 10 unit IM ASDIRECTED PRN PRN Reason: Excessive Vaginal Bleeding Prenat Multivit/Union Organizer/Iron/Folic Ac ( Mtr) 1 each PO DAILY [facility] Venlafaxine HCl (Effexor Xr) 75 mg PO DAILY [facility] Last Admin: 09/12/19 15:51 Dose: 75 mg Discontinued Medications Butorphanol Tartrate (Stadol) 1 mg IVPUSH Q1H PRN PRN Reason: Pain Carboprost Tromethamine (Hemabate Ds) 250 mcg IM ASDIRECTED PRN PRN Reason: Post Hemorrhage Cefazolin Sodium (Ancef) Confirm Administered Dose 2 gm .ROUTE .STK-MED ONE Stop: 09/12/19 07:07 Citric Acid/Sodium Citrate (Bicitra Solution) 30 ml PO ONETIME ONE Stop: 09/12/19 05:15 Last Admin: 09/12/19 07:51 Dose: 30 ml Citric Acid/Sodium Citrate (Bicitra Solution) Confirm Administered Dose 30 ml .ROUTE .STK-MED ONE Stop: 09/12/19 07:36 Cefazolin Sodium/Dextrose 2 gm (/ Premix) 50 mls @ 100 mls/hr IV ONETIME ONE Stop: 09/12/19 05:43 Lactated Ringer's (Ringers, Lactated) 1,000 mls @ 500 mls/hr IV BOLUS [facility] Last Admin: 09/12/19 07:51 Dose: 500 mls/hr Lactated Ringer's (Ringers, Lactated) 1,000 mls @ 150 mls/hr IV ASDIRECTED [facility] Oxytocin/Sodium Chloride (Oxytocin 30 Unit/500 Ml-Ns) 30 unit in 500 mls @ 250 mls/hr IV TITRATE TOÑA Oxytocin/Sodium Chloride (Oxytocin 30 Unit/500 Ml-Ns) 30 unit in 500 mls @ 999 mls/hr IV TITRATE [facility] Tranexamic Acid 1,000 mg/ (Sodium Chloride) 110 mls @ 660 mls/hr IV ONETIME PRN PRN Reason: Bleeding Sodium Chloride (Normal Saline) Confirm Administered Dose 20 mls @ as directed .ROUTE .STK-MED ONE Stop: 09/12/19 07:07 Ketorolac Tromethamine (Toradol) Confirm Administered Dose 30 mg .ROUTE .STK- MED ONE Stop: 09/12/19 07:07 Lidocaine HCl (Xylocaine 1%) 50 ml INJECT ONETIME PRN PRN Reason: Laceration repair Magnesium Oxide (Magnesium Oxide) 200 mg PO DAILY [facility] Methylergonovine Maleate (Methergine) 0.2 mg IM ASDIRECTED PRN PRN Reason: Post Hemorrhage Misoprostol (Cytotec) 200 mcg PO ONETIME PRN PRN Reason: Post Hemorrhage Morphine Sulfate (Duramorph Pf) Confirm Administered Dose 10 mg .ROUTE .STK-MED ONE Stop: 09/12/19 07:07 Nalbuphine HCl (Nubain) 10 mg IVPUSH Q1H PRN PRN Reason: Pain (severe 7-10) Octyl Cyanoacrylate (Dermabond Advance) Confirm Administered Dose 1 applic .ROUTE .STK-MED ONE Stop: 09/12/19 07:44 Ondansetron HCl (Zofran) Confirm Administered Dose 4 mg .ROUTE .STK-MED ONE Stop: 09/12/19 07:07 Oxytocin (Pitocin) Confirm Administered Dose 20 unit .ROUTE .STK-MED ONE Stop: 09/12/19 07:07 Phenylephrine HCl (Perry-Synephrine) Confirm Administered Dose 10 mg .ROUTE .STK- MED ONE Stop: 09/12/19 07:08 Sodium Chloride (Saline Flush) 10 ml FLUSH ASDIRECTED PRN PRN Reason: Keep Vein Open Sodium Chloride (Saline Flush) 2.5 ml FLUSH ASDIRECTED PRN PRN Reason: Keep Vein Open Sodium Chloride (Normal Saline) 10 ml IV ASDIRECTED PRN PRN Reason: IV Use Sterile Water (Sterile Water For Irrigation) 1,000 ml IRR ASDIRECTED PRN PRN Reason: delivery Venlafaxine HCl (Effexor Xr) 75 mg PO DAILY TOÑA - Infant Interaction Disposition, : Roby in Room with Family Interaction: Holding Infant Feeding: Breastfed Infant; Nursed Well Support Person: - Recovery Exam Fundal Tone: Firm Fundal Level: 2 Fingerbreadths Below Umbilicus Fundal Placement: Midline Lochia Amount: Scant Lochia Color: Rubra/Red Perineum Description: Intact, Minimal Bruising/Swelling Episiotomy/Laceration: None Bladder Status: Indwelling Catheter in Place Urinary Elimination: Indwelling Catheter - Exam General: Alert, Oriented HEENT: Pupils Equal Lungs: Normal Respiratory Effort GI/Abdominal Exam: Soft, Non-Tender, No Organomegaly, No Distention Extremities: Normal Inspection, Non-Tender, No Pedal Edema Skin: Warm, Dry, Intact Wound/Incisions: Healing Well Neurological: No New Focal Deficit Psy/Mental Status: Alert, Normal Affect, Normal Mood - Problem List & Annotations (1) Previous delivery affecting , delivered SNOMED Code(s): 628445686, 325740920 Code(s): O34.219 - MATERNAL CARE FOR UNSP TYPE SCAR FROM PREVIOUS DEL Status: Acute Current Visit: No - Problem List Review Problem List Initiated/Reviewed/Updated: Yes - My Orders Last 24 Hours: My Active Orders 09/12/19 08:45 Patient Status [ADT] Routine Ambulate [RC] PER UNIT ROUTINE Antiembolic Devices [RC] PER UNIT ROUTINE Communication Order [RC] PER UNIT ROUTINE Communication Order [RC] PER UNIT ROUTINE Communication Order [RC] Per Unit Routine May Shower [RC] ASDIRECTED RT Incentive Spirometry [RC] Q2HWA Vital Signs [RC] PER UNIT ROUTINE Acetaminophen/oxyCODONE [Percocet 325-5 MG] 1 tab PO Q4H PRN Acetaminophen/oxyCODONE [Percocet 325-5 MG] 2 tab PO Q4H PRN Ketorolac [Toradol] 30 mg IVPUSH Q6H Lactated Ringers [Ringers, Lactated] 1,000 ml IV ASDIRECTED Lanolin [Lansinoh HPA] See Dose Instructions TOP ASDIRECTED PRN Methylergonovine [Methergine] 0.2 mg IM ONETIME PRN Ondansetron [Zofran] 4 mg IVPUSH Q4H PRN Oxytocin [Pitocin] 10 unit IM ASDIRECTED PRN Oxytocin/Lactated Ringers [Pitocin in LR 30 Units/500 ML] 30 unit in 500 ml IV TITRATE Tranexamic Acid [Cyklokapron] 1,000 mg Sodium Chloride 0.9% [Normal Saline] 100 ml IV ONETIME bisacodyL [Dulcolax] 10 mg RECTAL ONETIME PRN diphenhydrAMINE [Benadryl] 25 mg IVPUSH Q6H PRN miSOPROStoL [Cytotec] 1,000 mcg RECTAL ONETIME PRN Abdominal Binder [OM.PC] Urgent Assess Lochia [WOMSER] Per Unit Routine Assess Uterine Involution [WOMSER] Per Unit Routine Breast Pump [WOMSER] Per Unit Routine Peripheral IV Discontinue [OM.PC] Routine Sequential Compression Device [OM.PC] Per Unit Routine Resuscitation Status Routine 09/12/19 08:46 Intake and Output [RC] Q12H Notify Provider Intake and Out [RC] ASDIRECTED Notify Provider Vital Signs [RC] ASDIRECTED 09/12/19 09:00 Docusate Sodium [Colace] 100 mg PO BID Omeprazole 20 mg PO ACBREAKFAST Vit/FA/Fe Fumarate/Se [ MTR] 1 each PO DAILY 09/12/19 16:00 Magnesium Oxide 400 mg PO DAILY Venlafaxine [Effexor XR] 75 mg PO DAILY 09/12/19 Dinner Regular Diet [DIET] 09/13/19 14:45 Ibuprofen [Motrin] 800 mg PO Q8H PRN - Assessment Assessment:: POD#1 after repeat low transverse , stable, minimal lochia, tolerating diet. is going well. - Plan Plan:: Continue postoperative care, ambulate, remove dressing may shower.
[2019-09-13] MEDS: Venlafaxine 75 MG Cap.ER PO SCH (08:45)
[2019-09-13] MEDS: Docusate Sodium 100 MG Cap PO SCH ×2 (08:45→21:11)
[2019-09-13] MEDS: Prenatal Multivitamin and Multimineral with Iron Tab PO SCH (08:45)
[2019-09-13] MEDS: Magnesium Oxide 400 MG Tab PO SCH (08:45)
[2019-09-13] MEDS: Acetaminophen/oxyCODONE 325-5 MG Tab PO PRN ×3 (12:42→21:11)
[2019-09-13] MEDS: Ibuprofen 800 MG Tab PO PRN (15:03)
[2019-09-14] MEDS: Ketorolac 30 MG/ML SDV IVPUSH SCH (01:57)
[2019-09-14] MEDS: Docusate Sodium 100 MG Cap PO SCH ×3 (01:59→21:00)
[2019-09-14] MEDS: Omeprazole 20 MG Cap.CR PO SCH ×2 (02:00→07:30)
[2019-09-14] MEDS: Prenatal Multivitamin and Multimineral with Iron Tab PO SCH ×2 (02:00→09:02)
[2019-09-14] MEDS: Ibuprofen 800 MG Tab PO PRN (04:06)
[2019-09-14] MEDS: Acetaminophen/oxyCODONE 325-5 MG Tab PO PRN ×3 (07:31→21:00)
--- NOTE | 2019-09-14 08:05 | PCM.PNPP ---
- General Info Date of Service: 09/14/19 Functional Status: Reports: Pain Controlled, Tolerating Diet, Ambulating, Urinating - Review of Systems General: Reports: No Symptoms HEENT: Reports: No Symptoms Pulmonary: Reports: No Symptoms Cardiovascular: Reports: No Symptoms Gastrointestinal: Reports: No Symptoms Genitourinary: Reports: No Symptoms Musculoskeletal: Reports: No Symptoms Skin: Reports: No Symptoms Neurological: Reports: No Symptoms Psychiatric: Reports: No Symptoms - General Info Date of Service: 09/14/19 - Patient Data Vital Signs - Most Recent: Last Vital Signs Temp 36.4 C 09/14/19 04:56 Pulse 84 09/14/19 06:22 Resp 17 09/14/19 04:56 BP 129/84 09/14/19 06:22 Pulse Ox 96 09/14/19 04:56 Weight - Most Recent: 122.016 kg Med Orders - Current: Current Medications Bisacodyl (Dulcolax) 10 mg RECTAL ONETIME PRN PRN Reason: Constipation Diphenhydramine HCl (Benadryl) 25 mg IVPUSH Q6H PRN PRN Reason: Itching or Nausea Docusate Sodium (Colace) 100 mg PO BID [facility] Last Admin: 09/14/19 01:59 Dose: Not Given Emollient Ointment (Lansinoh Hpa) 0 gm TOP ASDIRECTED PRN PRN Reason: Sore Nipples Lactated Ringer's (Ringers, Lactated) 1,000 mls @ 125 mls/hr IV ASDIRECTED [facility] Last Admin: 09/12/19 10:46 Dose: 125 mls/hr Oxytocin/Lactated Ringer's (Pitocin In Lr 30 Units/500 Ml) 30 unit in 500 mls @ 999 mls/hr IV TITRATE [facility]; Protocol Tranexamic Acid 1,000 mg/ (Sodium Chloride) 110 mls @ 660 mls/hr IV ONETIME PRN PRN Reason: Bleeding Ibuprofen (Motrin) 800 mg PO Q8H PRN PRN Reason: mild pain or fever Last Admin: 09/14/19 04:06 Dose: 800 mg Magnesium Oxide (Magnesium Oxide) 400 mg PO DAILY [facility] Last Admin: 09/13/19 08:45 Dose: 400 mg Methylergonovine Maleate (Methergine) 0.2 mg IM ONETIME PRN PRN Reason: Excessive Vaginal Bleeding Misoprostol (Cytotec) 1,000 mcg RECTAL ONETIME PRN PRN Reason: excessive bleeding Omeprazole (Omeprazole) 20 mg PO ACBREAKFAST [facility] Last Admin: 09/14/19 07:30 Dose: 20 mg Ondansetron HCl (Zofran) 4 mg IVPUSH Q4H PRN PRN Reason: Nausea/Vomiting Oxycodone/Acetaminophen (Percocet 325-5 Mg) 1 tab PO ONETIME PRN PRN Reason: Pain (moderate 4-6) Oxycodone/Acetaminophen (Percocet 325-5 Mg) 1 tab PO Q4H PRN PRN Reason: Pain (moderate 4-6) Last Admin: 09/13/19 16:52 Dose: 1 tab Oxycodone/Acetaminophen (Percocet 325-5 Mg) 2 tab PO Q4H PRN PRN Reason: Pain (moderate 4-6) Last Admin: 09/14/19 07:31 Dose: 2 tab Oxytocin (Pitocin) 10 unit IM ASDIRECTED PRN PRN Reason: Excessive Vaginal Bleeding Prenat Multivit/[place]/Iron/Folic Ac ( Mtr) 1 each PO DAILY [facility] Last Admin: 09/14/19 02:00 Dose: Not Given Venlafaxine HCl (Effexor Xr) 75 mg PO DAILY [facility] Last Admin: 09/13/19 08:45 Dose: 75 mg Discontinued Medications Butorphanol Tartrate (Stadol) 1 mg IVPUSH Q1H PRN PRN Reason: Pain Carboprost Tromethamine (Hemabate Ds) 250 mcg IM ASDIRECTED PRN PRN Reason: Post Hemorrhage Cefazolin Sodium (Ancef) Confirm Administered Dose 2 gm .ROUTE .STK-MED ONE Stop: 09/12/19 07:07 Citric Acid/Sodium Citrate (Bicitra Solution) 30 ml PO ONETIME ONE Stop: 09/12/19 05:15 Last Admin: 09/12/19 07:51 Dose: 30 ml Citric Acid/Sodium Citrate (Bicitra Solution) Confirm Administered Dose 30 ml .ROUTE .STK-MED ONE Stop: 09/12/19 07:36 Fentanyl (Sublimaze) 50 mcg IVPUSH Q5M PRN PRN Reason: Pain (severe 7-10) Stop: 09/13/19 08:24 Cefazolin Sodium/Dextrose 2 gm (/ Premix) 50 mls @ 100 mls/hr IV ONETIME ONE Stop: 09/12/19 05:43 Lactated Ringer's (Ringers, Lactated) 1,000 mls @ 500 mls/hr IV BOLUS [facility] Last Admin: 09/12/19 07:51 Dose: 500 mls/hr Lactated Ringer's (Ringers, Lactated) 1,000 mls @ 150 mls/hr IV ASDIRECTED [facility] Oxytocin/Sodium Chloride (Oxytocin 30 Unit/500 Ml-Ns) 30 unit in 500 mls @ 250 mls/hr IV TITRATE [place] Oxytocin/Sodium Chloride (Oxytocin 30 Unit/500 Ml-Ns) 30 unit in 500 mls @ 999 mls/hr IV TITRATE [place] Tranexamic Acid 1,000 mg/ (Sodium Chloride) 110 mls @ 660 mls/hr IV ONETIME PRN PRN Reason: Bleeding Sodium Chloride (Normal Saline) Confirm Administered Dose 20 mls @ as directed .ROUTE .STK-MED ONE Stop: 09/12/19 07:07 Ketorolac Tromethamine (Toradol) Confirm Administered Dose 30 mg .ROUTE .STK- MED ONE Stop: 09/12/19 07:07 Ketorolac Tromethamine (Toradol) 30 mg IVPUSH Q6H [facility] Stop: 09/13/19 08:46 Last Admin: 09/14/19 01:57 Dose: Not Given Lidocaine HCl (Xylocaine 1%) 50 ml INJECT ONETIME PRN PRN Reason: Laceration repair Magnesium Oxide (Magnesium Oxide) 200 mg PO DAILY [facility] Methylergonovine Maleate (Methergine) 0.2 mg IM ASDIRECTED PRN PRN Reason: Post Hemorrhage Misoprostol (Cytotec) 200 mcg PO ONETIME PRN PRN Reason: Post Hemorrhage Morphine Sulfate (Duramorph Pf) Confirm Administered Dose 10 mg .ROUTE .STK-MED ONE Stop: 09/12/19 07:07 Nalbuphine HCl (Nubain) 10 mg IVPUSH Q1H PRN PRN Reason: Pain (severe 7-10) Nalbuphine HCl (Nubain) 2.5 mg IVPUSH Q3H PRN PRN Reason: Pruritis Stop: 09/13/19 08:24 Octyl Cyanoacrylate (Dermabond Advance) Confirm Administered Dose 1 applic .ROUTE .STK-MED ONE Stop: 09/12/19 07:44 Ondansetron HCl (Zofran) Confirm Administered Dose 4 mg .ROUTE .STK-MED ONE Stop: 09/12/19 07:07 Oxytocin (Pitocin) Confirm Administered Dose 20 unit .ROUTE .STK-MED ONE Stop: 09/12/19 07:07 Phenylephrine HCl ([place]ry-Synephrine) Confirm Administered Dose 10 mg .ROUTE .STK- MED ONE Stop: 09/12/19 07:08 Sodium Chloride (Saline Flush) 10 ml FLUSH ASDIRECTED PRN PRN Reason: Keep Vein Open Sodium Chloride (Saline Flush) 2.5 ml FLUSH ASDIRECTED PRN PRN Reason: Keep Vein Open Sodium Chloride (Normal Saline) 10 ml IV ASDIRECTED PRN PRN Reason: IV Use Sterile Water (Sterile Water For Irrigation) 1,000 ml IRR ASDIRECTED PRN PRN Reason: delivery Venlafaxine HCl (Effexor Xr) 75 mg PO DAILY [facility] - Infant Interaction Infant Disposition, : to Nursery (IV started due to glucose of 29) Infant Feeding: Breastfed ; Nursed Well Support Person: - Recovery Exam Fundal Tone: Firm Fundal Level: 2 Fingerbreadths Below Umbilicus Fundal Placement: Midline Lochia Amount: Scant Lochia Color: Rubra/Red Perineum Description: Intact, Minimal Bruising/Swelling Episiotomy/Laceration: None Bladder Status: Voiding Urinary Elimination: Voided - Exam General: Alert, Oriented Lungs: Normal Respiratory Effort GI/Abdominal Exam: Soft, Non-Tender, No Distention Extremities: Normal Range of Motion, Non-Tender, No Pedal Edema Wound/Incisions: Healing Well Neurological: No New Focal Deficit - Problem List & Annotations (1) Previous delivery affecting , delivered SNOMED Code(s): 219476399, 749583486 Code(s): O34.219 - MATERNAL CARE FOR UNSP TYPE SCAR FROM PREVIOUS DEL Status: Acute Current Visit: No - Problem List Review Problem List Initiated/Reviewed/Updated: Yes - My Orders Last 24 Hours: My Active Orders 09/13/19 14:45 Ibuprofen [Motrin] 800 mg PO Q8H PRN - Assessment Assessment:: POD#2 after repeat low transverse , stable, minimal lochia, tolerating diet. is going well. Occasional elevated diastolic BP, denies headache or visual change, still some pain. - Plan Plan:: Reviewed hypertensive precautions, return to clinic in 1 week for BP check. If baby is stable for discharge would like to go home today, discharge precautions reviewed.
[2019-09-14] MEDS: Magnesium Oxide 400 MG Tab PO SCH (09:02)
[2019-09-14] MEDS: Venlafaxine 75 MG Cap.ER PO SCH (09:02)
[2019-09-15] MEDS: Acetaminophen/oxyCODONE 325-5 MG Tab PO PRN ×2 (05:52→10:06)
[2019-09-15] MEDS: Omeprazole 20 MG Cap.CR PO SCH (08:06)
[2019-09-15] MEDS: Magnesium Oxide 400 MG Tab PO SCH (09:04)
[2019-09-15] MEDS: Venlafaxine 75 MG Cap.ER PO SCH (09:04)
[2019-09-15] MEDS: Docusate Sodium 100 MG Cap PO SCH (09:04)
[2019-09-15] MEDS: Prenatal Multivitamin and Multimineral with Iron Tab PO SCH (09:04)
--- NOTE | 2019-09-15 09:49 | PCM.PNPP ---
- General Info Date of Service: 09/15/19 Functional Status: Reports: Pain Controlled, Tolerating Diet, Ambulating, Urinating - Review of Systems General: Reports: No Symptoms HEENT: Reports: No Symptoms Pulmonary: Reports: No Symptoms Cardiovascular: Reports: No Symptoms Gastrointestinal: Reports: No Symptoms Genitourinary: Reports: No Symptoms Musculoskeletal: Reports: No Symptoms Skin: Reports: No Symptoms Neurological: Reports: No Symptoms Psychiatric: Reports: No Symptoms - General Info Date of Service: 09/15/19 - Patient Data Vital Signs - Most Recent: Last Vital Signs Temp 36.2 C 09/15/19 04:54 Pulse 86 09/15/19 04:54 Resp 17 09/15/19 04:54 BP 138/79 09/15/19 04:54 Pulse Ox 96 09/15/19 04:54 Weight - Most Recent: 122.016 kg Med Orders - Current: Current Medications Bisacodyl (Dulcolax) 10 mg RECTAL ONETIME PRN PRN Reason: Constipation Diphenhydramine HCl (Benadryl) 25 mg IVPUSH Q6H PRN PRN Reason: Itching or Nausea Docusate Sodium (Colace) 100 mg PO BID [facility] Last Admin: 09/15/19 09:04 Dose: 100 mg Emollient Ointment (Lansinoh Hpa) 0 gm TOP ASDIRECTED PRN PRN Reason: Sore Nipples Lactated Ringer's (Ringers, Lactated) 1,000 mls @ 125 mls/hr IV ASDIRECTED [facility] Last Admin: 09/12/19 10:46 Dose: 125 mls/hr Oxytocin/Lactated Ringer's (Pitocin In Lr 30 Units/500 Ml) 30 unit in 500 mls @ 999 mls/hr IV TITRATE [facility]; Protocol Tranexamic Acid 1,000 mg/ (Sodium Chloride) 110 mls @ 660 mls/hr IV ONETIME PRN PRN Reason: Bleeding Ibuprofen (Motrin) 800 mg PO Q8H PRN PRN Reason: mild pain or fever Last Admin: 09/14/19 04:06 Dose: 800 mg Magnesium Oxide (Magnesium Oxide) 400 mg PO DAILY [facility] Last Admin: 09/15/19 09:04 Dose: 400 mg Methylergonovine Maleate (Methergine) 0.2 mg IM ONETIME PRN PRN Reason: Excessive Vaginal Bleeding Misoprostol (Cytotec) 1,000 mcg RECTAL ONETIME PRN PRN Reason: excessive bleeding Omeprazole (Omeprazole) 20 mg PO ACBREAKFAST [facility] Last Admin: 09/15/19 08:06 Dose: 20 mg Ondansetron HCl (Zofran) 4 mg IVPUSH Q4H PRN PRN Reason: Nausea/Vomiting Oxycodone/Acetaminophen (Percocet 325-5 Mg) 1 tab PO ONETIME PRN PRN Reason: Pain (moderate 4-6) Oxycodone/Acetaminophen (Percocet 325-5 Mg) 1 tab PO Q4H PRN PRN Reason: Pain (moderate 4-6) Last Admin: 09/13/19 16:52 Dose: 1 tab Oxycodone/Acetaminophen (Percocet 325-5 Mg) 2 tab PO Q4H PRN PRN Reason: Pain (moderate 4-6) Last Admin: 09/15/19 05:52 Dose: 2 tab Oxytocin (Pitocin) 10 unit IM ASDIRECTED PRN PRN Reason: Excessive Vaginal Bleeding Prenat Multivit/[place]/Iron/Folic Ac ( Mtr) 1 each PO DAILY [facility] Last Admin: 09/15/19 09:04 Dose: 1 each Venlafaxine HCl (Effexor Xr) 75 mg PO DAILY [facility] Last Admin: 09/15/19 09:04 Dose: 75 mg Discontinued Medications Butorphanol Tartrate (Stadol) 1 mg IVPUSH Q1H PRN PRN Reason: Pain Carboprost Tromethamine (Hemabate Ds) 250 mcg IM ASDIRECTED PRN PRN Reason: Post Hemorrhage Cefazolin Sodium (Ancef) Confirm Administered Dose 2 gm .ROUTE .STK-MED ONE Stop: 09/12/19 07:07 Citric Acid/Sodium Citrate (Bicitra Solution) 30 ml PO ONETIME ONE Stop: 09/12/19 05:15 Last Admin: 09/12/19 07:51 Dose: 30 ml Citric Acid/Sodium Citrate (Bicitra Solution) Confirm Administered Dose 30 ml .ROUTE .STK-MED ONE Stop: 09/12/19 07:36 Fentanyl (Sublimaze) 50 mcg IVPUSH Q5M PRN PRN Reason: Pain (severe 7-10) Stop: 09/13/19 08:24 Cefazolin Sodium/Dextrose 2 gm (/ Premix) 50 mls @ 100 mls/hr IV ONETIME ONE Stop: 09/12/19 05:43 Lactated Ringer's (Ringers, Lactated) 1,000 mls @ 500 mls/hr IV BOLUS [facility] Last Admin: 09/12/19 07:51 Dose: 500 mls/hr Lactated Ringer's (Ringers, Lactated) 1,000 mls @ 150 mls/hr IV ASDIRECTED [facility] Oxytocin/Sodium Chloride (Oxytocin 30 Unit/500 Ml-Ns) 30 unit in 500 mls @ 250 mls/hr IV TITRATE [place] Oxytocin/Sodium Chloride (Oxytocin 30 Unit/500 Ml-Ns) 30 unit in 500 mls @ 999 mls/hr IV TITRATE [facility] Tranexamic Acid 1,000 mg/ (Sodium Chloride) 110 mls @ 660 mls/hr IV ONETIME PRN PRN Reason: Bleeding Sodium Chloride (Normal Saline) Confirm Administered Dose 20 mls @ as directed .ROUTE .STK-MED ONE Stop: 09/12/19 07:07 Ketorolac Tromethamine (Toradol) Confirm Administered Dose 30 mg .ROUTE .STK- MED ONE Stop: 09/12/19 07:07 Ketorolac Tromethamine (Toradol) 30 mg IVPUSH Q6H [facility] Stop: 09/13/19 08:46 Last Admin: 09/14/19 01:57 Dose: Not Given Lidocaine HCl (Xylocaine 1%) 50 ml INJECT ONETIME PRN PRN Reason: Laceration repair Magnesium Oxide (Magnesium Oxide) 200 mg PO DAILY [facility] Methylergonovine Maleate (Methergine) 0.2 mg IM ASDIRECTED PRN PRN Reason: Post Hemorrhage Misoprostol (Cytotec) 200 mcg PO ONETIME PRN PRN Reason: Post Hemorrhage Morphine Sulfate (Duramorph Pf) Confirm Administered Dose 10 mg .ROUTE .STK-MED ONE Stop: 09/12/19 07:07 Nalbuphine HCl (Nubain) 10 mg IVPUSH Q1H PRN PRN Reason: Pain (severe 7-10) Nalbuphine HCl (Nubain) 2.5 mg IVPUSH Q3H PRN PRN Reason: Pruritis Stop: 09/13/19 08:24 Octyl Cyanoacrylate (Dermabond Advance) Confirm Administered Dose 1 applic .ROUTE .STK-MED ONE Stop: 09/12/19 07:44 Ondansetron HCl (Zofran) Confirm Administered Dose 4 mg .ROUTE .STK-MED ONE Stop: 09/12/19 07:07 Oxytocin (Pitocin) Confirm Administered Dose 20 unit .ROUTE .STK-MED ONE Stop: 09/12/19 07:07 Phenylephrine HCl (Perry-Synephrine) Confirm Administered Dose 10 mg .ROUTE .STK- MED ONE Stop: 09/12/19 07:08 Sodium Chloride (Saline Flush) 10 ml FLUSH ASDIRECTED PRN PRN Reason: Keep Vein Open Sodium Chloride (Saline Flush) 2.5 ml FLUSH ASDIRECTED PRN PRN Reason: Keep Vein Open Sodium Chloride (Normal Saline) 10 ml IV ASDIRECTED PRN PRN Reason: IV Use Sterile Water (Sterile Water For Irrigation) 1,000 ml IRR ASDIRECTED PRN PRN Reason: delivery Venlafaxine HCl (Effexor Xr) 75 mg PO DAILY [facility] - Infant Interaction Infant Disposition, : [place] to Nursery (IV started due to glucose of 29) Interaction: Holding Feeding: Breastfed Infant; Nursed Well Support Person: - Recovery Exam Fundal Tone: Firm Fundal Level: 1 Fingerbreadths Below Umbilicus Fundal Placement: Midline Lochia Amount: Scant Lochia Color: Rubra/Red Perineum Description: Intact, Minimal Bruising/Swelling Episiotomy/Laceration: None Bladder Status: Voiding Urinary Elimination: Voided - Exam General: Alert, Oriented Lungs: Normal Respiratory Effort GI/Abdominal Exam: Non-Tender, No Distention, Pelvis Stable Extremities: Normal Inspection, Non-Tender, No Pedal Edema Wound/Incisions: Healing Well Neurological: No New Focal Deficit Psy/Mental Status: Alert, Normal Affect, Normal Mood - Problem List & Annotations (1) Previous delivery affecting , delivered SNOMED Code(s): 497515191, 104142540 Code(s): O34.219 - MATERNAL CARE FOR UNSP TYPE SCAR FROM PREVIOUS DEL Status: Acute Current Visit: No - Problem List Review Problem List Initiated/Reviewed/Updated: Yes - Assessment Assessment:: POD#3 after repeat low transverse , stable, minimal lochia, tolerating diet. is going well. Blood pressures improved, baby's glucose normal, ready for discharge. - Plan Plan:: Discharge precautions reviewed. Dismiss to home.
[2019-09-15 09:58] VITALS: BP 155/97; PULSE 88
== END 2019-09-15 11:35 | disposition home or self-care (01) | DRG 788 ==
LOC: MW.OB 05:08
PROVIDERS: ADMIT Obstetrics & Gynecology; ATTEND Obstetrics & Gynecology
PROC: 10D00Z1 Extraction of Products of Conception, Low, Open Approach (ICD-10-PCS; principal; 2019-09-12)
DX: O34.211 Maternal care for low transverse scar from previous cesarean delivery (principal); Z37.0 Single live birth; Z3A.39 39 weeks gestation of pregnancy; O40.3XX0 Polyhydramnios, third trimester, not applicable or unspecified; O36.63X0 Maternal care for excessive fetal growth, third trimester, not applicable or unspecified
CPT/HCPCS: 36415; 51702; 59025; 82803; 85014; 85018; 85027; 86850; 86900; 86901; A9270-GY; J0690; J1885; J2270; J2370; J2405; J2590; J7120; U0002

== ENCOUNTER 2021-03-23 16:31 | Emergency (ER) | payer OTHER ==
[2021-03-23] MEDS ORDERED: predniSONE 20 MG Tab PO ONE (16:52)
--- NOTE | 2021-03-23 17:02 | EDM.PDOC ---
ED HPI GENERAL MEDICAL PROBLEM - General Chief Complaint: Back Pain or Injury Stated Complaint: POSSIBLE HERNIATED DISC Time Seen by Provider: 03/23/21 16:38 Source of Information: Reports: Patient History Limitations: Reports: No Limitations - History of Present Illness INITIAL COMMENTS - FREE TEXT/NARRATIVE: HISTORY AND PHYSICAL: History of present illness: The patient is a 35-year-old female who presents to the emergency room complaining of back pain after playing volleyball yesterday. The patient states that she has an history of a herniated disc L4-L5 and normally takes it easy. She states normally she can play volleyball without difficulty, however yesterday she played in a tournament and played usually aggressive. Patient states the pain starts in her right lower back and shoots down her butt extending down past her leg. The patient states that she has difficulty getting out of bed due to the pain. She is able to ambulate but slowly. She is able to dress herself and toilet herself. She has full control over her bowel and bladder. She has only been taken Tylenol at home. Patient denies any fever, chills, headache, change in vision, syncope or near syncope. Denies any chest pain, shortness of breath or cough. Denies any abdominal pain, nausea, vomiting, diarrhea, constipation or dysuria. Has not noted any blood in urine or stool. Patient has been eating and drinking appropriately. Review of systems: As per history of present illness and below otherwise all systems reviewed and negative. Past medical history: As per history of present illness and as reviewed below otherwise noncontributory. Surgical history: As per history of present illness and as reviewed below otherwise noncontributory. Social history: See social history for further information Family history: As per history of present illness and as reviewed below otherwise noncontributory. Physical exam: General: Well developed and well nourished. Alert and orientated x 3. Nontoxic in appearance and in no acute distress. Vital signs are stable and have been reviewed by me. Nursing notes were reviewed. HEENT: Atraumatic, normocephalic, pupils equal and reactive bilaterally, negative for conjunctival pallor or scleral icterus, mucous membranes moist, TMs normal bilaterally, throat clear, neck supple, nontender, trachea midline. No drooling or trismus noted. No meningeal signs. No hot potato voice noted. Lungs: Clear to auscultation bilaterally. No wheezes, rales, or rhonchi. Chest nontender. Normal work of breathing, no accessory muscles used. Heart: S1S2, regular rate and rhythm without overt murmur, gallops, or rubs. No JVD. No peripheral edema Abdomen: Soft, nondistended, nontender. Normoactive bowel sounds. Negative for masses or costovertebral tenderness. Back: Neck and back have no deformities, external skin changes, or signs of trauma. Curvature of the cervical, thoracic, and lumbar spine are within normal limits. Bony features of the shoulders and hips are of equal height bilaterally. Posture is upright, gait is smooth and steady. No tenderness is noted on palpation of the spinous processes. Spinous processes are midline. Cervical, thoracic, and lumbar paraspinal muscles are not tender and are without spasm. Mild discomfort is noted with flexion, extension, and [id number] rotation of the cervical spine, full range of motion is noted. Full range of motion including flexion, extension, and [id number] rotation of the thoracic and lumbar spine are noted and with discomfort. Straight leg raise test is positive. Sensation to the upper and lower left is normal. Right lower extremity with numbness and pain radiating down posterior leg. No clonus is noted. Assistant Merchandiser strength is normal bilaterally. Dorsi/plantar flexion is normal bilaterally. Skin: Intact, warm, dry. No lesions or rashes noted. Hematologic: No petechiae or purpra. Mucosa appropriate color and normal nail bed color and refill. Extremities: Atraumatic, moves all extremities per self without difficulty or deficits, negative for cords or calf pain. Neurovascular unremarkable. Neuro: Awake, alert, oriented. Cranial nerves II through XII unremarkable. Cerebellum unremarkable. Motor and sensory unremarkable throughout. Exam nonfocal. Psychiatric: Mood and affect are appropriate. Normal thought process. Answering questions appropriately. Notes: *This patient was seen and evaluated during the 2019 SARS-CoV-2 novel coronavirus pandemic period. Community viral transmission is ongoing at time of this encounter and the emergency department is operating under pandemic response procedures. As stated above the patient is a 35-year-old female who presents to the emergency room complaining of back pain after playing volleyball yesterday. The patient states that she has an history of a herniated disc L4-L5 and normally takes it easy. The patient had a positive straight leg raise on the right side. I will treat the patient with prednisone 60 mg in the emergency department and send her home with tramadol from and see med. I will send a prescription for prednisone 60 mg daily for 5 days to [facility] and pharmacy. The patient is agreeable with this discharge plan. I have talked with the patient about today's findings, in addition to providing specific details for plan of care. Reassessment at the time of disposition demonstrates that the patient is in no acute distress. The patient is stable for discharge, counseling was provided and we discussed in great detail signs and symptoms that would prompt them to return to the Emergency Department. Med ication, follow up and supportive care measures were reviewed and discussed. Voices understanding and is agreeable to plan of care. Denies any further questions or concerns at this time. Therapeutics: Prednisone 60 mg Prescription: Tramadol 1 every 8 hours as needed for pain control Impression: Back pain Plan: 1. You were evaluated today on an emergent basis. Your complaints of right low back pain was evaluated with an examination. I will treat your low back pain and right leg numbness with prednisone you receive your first dose in the emergency room. I will send the prednisone to [facility] which she can pickle pumper tomorrow. I will treat your pain with tramadol for a few days until the prednisone has helped with the inflammation. As we talked about if you were to have increased numbness or lose control of your bowel or bladders please return to the emergency department. Otherwise you need to follow-up with your primary care provider. 2. You can alternate Tylenol and ibuprofen as needed for pain and fever management. 3. We encourage you to follow up with your primary care provider and/or recommended specialist in the next few days for re-evaluation and further care/management. 4. If your symptoms should worsen, new symptoms develop or any of the signs and symptoms we discussed should arise please return to the emergency room or call 911 (if needed). Definitive disposition and diagnosis as appropriate pending reevaluation and review of above. right lower abck Pain Score (Numeric/FACES): 6 - Related Data Allergies Allergy/AdvReac Type Severity Reaction Status Date / Time No Known Allergies Allergy Verified 03/23/21 16:39 Home Meds: Home Meds Venlafaxine HCl 150 mg PO DAILY 09/06/19 [History] predniSONE [Prednisone] 60 mg PO DAILY 5 Days #15 tablet 03/23/21 [Rx] Past Medical History HEENT History: Reports: Other (See Below) Other HEENT History: wears glasses Cardiovascular History: Reports: None Respiratory History: Reports: None Gastrointestinal History: Reports: GERD, Irritable Bowel Syndrome Other Gastrointestinal History: some heartburn during Genitourinary History: Reports: None 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: Musculoskeletal History: Reports: Back Pain, Chronic, Fracture Other Musculoskeletal History: hx of fx wrist Neurological History: Reports: Migraines Psychiatric History: Reports: Anxiety, Depression Endocrine/Metabolic History: Reports: Obesity/BMI 30+ Hematologic History: Reports: None Immunologic History: Reports: None Oncologic (Cancer) History: Reports: None Dermatologic History: Reports: None - Infectious Disease History Infectious Disease History: Reports: Chicken Pox - Past Surgical History Head Surgeries/Procedures: Reports: None HEENT Surgical History: Reports: Adenoidectomy, Oral Surgery, Tonsillectomy Cardiovascular Surgical History: Reports: None Respiratory Surgical History: Reports: None GI Surgical History: Reports: Hernia, Abdominal Other GI Surgeries/Procedures: hx umbilical hernia repair Female Surgical History: Reports: Section Other Female Surgeries/Procedures: c/section x2 Endocrine Surgical History: Reports: None Neurological Surgical History: Reports: None Musculoskeletal Surgical History: Reports: None Oncologic Surgical History: Reports: None Dermatological Surgical History: Reports: None Social & Family History - Family History Family Medical History: No Pertinent Family History HEENT: Reports: None Cardiac: Reports: Heart Valve Replacement, Hypertension Respiratory: Reports: None GI: Reports: None Musculoskeletal: Reports: Arthritis Psychiatric: Reports: Depression Endocrine/Metabolic: Reports: Diabetes, type II Oncologic: Reports: Ovarian - Tobacco Use Tobacco Use Status *Q: Never Tobacco User - Caffeine Use Caffeine Use: Reports: Coffee - Recreational Drug Use Recreational Drug Use: No ED ROS GENERAL - Review of Systems Review Of Systems: Comprehensive ROS is negative, except as noted in HPI. ED EXAM,LOWER BACK PAIN/INJURY - Physical Exam Exam: See Below (See dictation) Course - Vital Signs Last Recorded V/S: Last Vital Signs Temp 97.5 F 03/23/21 16:36 Pulse 88 03/23/21 16:36 Resp 16 03/23/21 16:36 BP 147/85 H 03/23/21 16:36 Pulse Ox 98 03/23/21 16:36 - Orders/Labs/Meds Meds: Medications Discontinued Medications Generic Name Dose Route Start Last Admin Trade Name Kristina PRN Reason Stop Dose Admin Prednisone 60 mg 03/23/21 16:52 03/23/21 16:58 Prednisone 20 Mg Tab PO 03/23/21 16:53 60 mg ONETIME ONE Administration Departure - Departure Time of Disposition: 16:59 Disposition: Home, Self-Care 01 Condition: Good Clinical Impression: Back pain Qualifiers: Back pain location: low back pain Chronicity: acute Back pain laterality: right Sciatica presence: without sciatica Qualified Code(s): M54.50 - Low back pain, unspecified - Discharge Information *PRESCRIPTION DRUG MONITORING PROGRAM REVIEWED*: No *COPY OF PRESCRIPTION DRUG MONITORING REPORT IN PATIENT AMADO: No Prescriptions: predniSONE [Prednisone] 60 mg PO DAILY 5 Days #15 tablet Instructions: Chronic Back Pain, [id number] Forms: ED Department Discharge Additional Instructions: The following information is given to patients seen in the emergency department who are being discharged to home. This information is to outline your options for follow-up care. We provide all patients seen in our emergency department with a follow-up referral. The need for follow-up, as well as the timing and circumstances, are variable depending upon the specifics of your emergency department visit. If you don't have a primary care physician on staff, we will provide you with a referral. We always advise you to contact your personal physician following an emergency department visit to inform them of the circumstance of the visit and for follow-up with them and/or the need for any referrals to a consulting specialist. The emergency department will also refer you to a specialist when appropriate. This referral assures that you have the opportunity for follow-up care with a specialist. All of these measure are taken in an effort to provide you with optimal care, which includes your follow-up. Under all circumstances we always encourage you to contact your private physician who remains a resource for coordinating your care. When calling for follow-up care, please make the office aware that this follow-up is from your recent emergency room visit. If for any reason you are refused follow-up, please contact the [facility] Emergency Department at and asked to speak to the emergency department charge nurse. Mayra Aroda [facility] [address] [place] [address], [place] [address] [facility] [address] [place] [address] Plan: 1. You were evaluated today on an emergent basis. Your complaints of right low back pain was evaluated with an examination. I will treat your low back pain and right leg numbness with prednisone you receive your first dose in the emergency room. I will send the prednisone to [facility] which she can pickle pumper tomorrow. I will treat your pain with tramadol for a few days until the prednisone has helped with the inflammation. As we talked about if you were to have increased numbness or lose control of your bowel or bladders please return to the emergency department. Otherwise you need to follow-up with your primary care provider. 2. You can alternate Tylenol and ibuprofen as needed for pain and fever management. 3. We encourage you to follow up with your primary care provider and/or recommended specialist in the next few days for re-evaluation and further care/management. 4. If your symptoms should worsen, new symptoms develop or any of the signs and symptoms we discussed should arise please return to the emergency room or call 911 (if needed). Sepsis Event Note (ED) - Evaluation Sepsis Screening Result: No Definite Risk - Focused Exam Vital Signs: Vital Signs Temp Pulse Resp BP Pulse Ox 03/23/21 16:36 97.5 F 88 16 147/85 H 98
[2021-03-23 17:18] VITALS: BP 118/85; PULSE 90
== END 2021-03-23 17:19 | disposition home or self-care (01) ==
LOC: MW.ED 16:31
DX: M54.50 Low back pain, unspecified (principal); E66.9 Obesity, unspecified; Z68.41 Body mass index [BMI] 40.0-44.9, adult; Z79.899 Other long term (current) drug therapy
CPT/HCPCS: 99283; A9270

== ENCOUNTER 2022-05-04 10:44 | Inpatient (IN) | payer OTHER ==
[2022-05-04] MEDS ORDERED: Sodium Chloride 0.9% 20 ML SDV IV PRN (13:31)
[2022-05-04] MEDS ORDERED: Oxytocin 10 Units/1 ML SDV IM PRN ×2 (13:31→15:48)
[2022-05-04] MEDS ORDERED: Sodium Chloride 0.9% 2.5 ML Syringe FLUSH PRN (13:31)
[2022-05-04] MEDS ORDERED: diphenhydrAMINE 50 MG/ML SDV IVPUSH PRN ×3 (13:31→16:17)
[2022-05-04] MEDS ORDERED: Bisacodyl 10 MG Supp RECTAL PRN ×2 (13:31→15:48)
[2022-05-04] MEDS ORDERED: Lanolin 100% Cream 7 GM Tube TOP PRN ×2 (13:31→15:48)
[2022-05-04] MEDS ORDERED: Water For Irrigation,Sterile 1,000 ML Container IRR PRN (13:31)
[2022-05-04] MEDS ORDERED: Carboprost Tromethamine 250 MCG/1 ML Amp IM PRN (13:31)
[2022-05-04] MEDS ORDERED: Misoprostol 200 MCG Tab RECTAL PRN ×2 (13:31→15:48)
[2022-05-04] MEDS ORDERED: Ondansetron 4 MG/2 ML SDV IVPUSH PRN ×3 (13:31→16:17)
[2022-05-04] MEDS ORDERED: Butorphanol 1 MG/ML SDV IVPUSH PRN (13:31)
[2022-05-04] MEDS ORDERED: Lidocaine 1% 50 ML MDV INJECT PRN (13:31)
[2022-05-04] MEDS ORDERED: Acetaminophen/oxyCODONE 325-5 MG Tab PO PRN ×4 (13:31→15:48)
[2022-05-04] MEDS ORDERED: Sodium Chloride 0.9% 10 ML Syringe FLUSH PRN (13:31)
[2022-05-04] MEDS ORDERED: Ibuprofen 800 MG Tab PO PRN (13:31)
[2022-05-04] MEDS ORDERED: Methylergonovine 0.2 MG/1 ML Amp IM PRN ×2 (13:31)
[2022-05-04] MEDS ORDERED: Tranexamic Acid 1,000 MG in Sodium Chloride 0.9% 100 ML IV PRN ×5 (13:31→15:48)
[2022-05-04] MEDS ORDERED: Misoprostol 200 MCG Tab PO PRN (13:31)
[2022-05-04] MEDS ORDERED: Oxytocin/0.9 % Sodium Chloride 30 UNIT/500 ML BAG IV SCH ×2 (13:45→16:00)
[2022-05-04] MEDS ORDERED: Citric Acid/Sodium Citrate Solution 30 ML Cup PO ONE (13:45)
[2022-05-04] MEDS ORDERED: Lactated Ringers 1,000 ML IV SCH ×3 (13:45→16:00)
[2022-05-04] MEDS ORDERED: Ketorolac 30 MG/ML SDV IVPUSH SCH (13:45)
[2022-05-04] MEDS ORDERED: ceFAZolin 2 GM in Premix Bag 1 BAG IV ONE (14:00)
[2022-05-04] MEDS ORDERED: Morphine PF 10 MG/10 ML SDV ONE (14:40)
[2022-05-04] MEDS ORDERED: ceFAZolin 1 GM Vial ONE (14:54)
[2022-05-04] MEDS ORDERED: Phenylephrine 1% 10 MG/ML SDV ONE (15:03)
[2022-05-04] MEDS ORDERED: Oxytocin 10 Units/1 ML SDV ONE (15:13)
[2022-05-04] MEDS ORDERED: Water For Injection, Sterile 60 ML ONE (15:13)
[2022-05-04] MEDS ORDERED: Dexamethasone 4 MG/ML 5 ML MDV ONE (15:13)
[2022-05-04] MEDS ORDERED: Ondansetron 4 MG/2 ML SDV ONE (15:13)
[2022-05-04] MEDS ORDERED: Dexmedetomidine 200 MCG/2 ML SDV ONE (15:13)
[2022-05-04] MEDS ORDERED: Ropivacaine 0.5% 5 MG/ML 30 ML SDV ONE (15:13)
[2022-05-04] MEDS ORDERED: Nalbuphine HCl 10 MG/ 1ML Amp IVPUSH PRN (16:16)
[2022-05-04] MEDS ORDERED: Naloxone 0.4 MG/ML SDV IVPUSH PRN (16:17)
[2022-05-04] MEDS ORDERED: fentaNYL 100 MCG/2 ML SDV IVPUSH PRN (16:17)
[2022-05-04] MEDS ORDERED: Phenylephrine HCl In 0.9% NaCl 1 MG/10 ML Vial IVPUSH SCH (16:18)
[2022-05-04] MEDS ORDERED: ePHEDrine 50 MG/ML SDV IVPUSH PRN (16:18)
[2022-05-04] MEDS: Ketorolac 30 MG/ML SDV IVPUSH SCH ×2 (21:00→21:15)
[2022-05-04] MEDS ORDERED: Docusate Sodium 100 MG Cap PO SCH (21:00)
[2022-05-04] MEDS: Docusate Sodium 100 MG Cap PO SCH (21:15)
[2022-05-05] MEDS: Ketorolac 30 MG/ML SDV IVPUSH SCH ×3 (03:34→15:05)
[2022-05-05] MEDS ORDERED: Venlafaxine 75 MG Cap.ER PO SCH (09:00)
[2022-05-05] MEDS ORDERED: Prenatal Multivitamin with Calcium/Folic Acid/Iron Tab PO SCH (09:00)
[2022-05-05] MEDS: Docusate Sodium 100 MG Cap PO SCH (09:04)
[2022-05-05 17:38] VITALS: PULSE 101
[2022-05-05 17:39] VITALS: BP 143/100
[2022-05-05] MEDS ORDERED: Ibuprofen 800 MG Tab PO PRN (22:00)
== END 2022-05-05 15:50 | disposition home or self-care (01) | DRG 788 ==
LOC: MW.OBCHECK 10:44 → MW.OB 10:46 → MW.OBCHECK 13:30 → MW.OB 13:32
PROVIDERS: ADMIT Obstetrics & Gynecology; ATTEND Obstetrics & Gynecology
PROC: 10D00Z1 Extraction of Products of Conception, Low, Open Approach (ICD-10-PCS; principal; 2022-05-04)
DX: O13.4 Gestational [pregnancy-induced] hypertension without significant proteinuria, complicating childbirth (principal); Z3A.36 36 weeks gestation of pregnancy; Z37.0 Single live birth; O76 Abnormality in fetal heart rate and rhythm complicating labor and delivery; O34.211 Maternal care for low transverse scar from previous cesarean delivery; O99.214 Obesity complicating childbirth; E66.01 Morbid (severe) obesity due to excess calories; O99.344 Other mental disorders complicating childbirth; F41.9 Anxiety disorder, unspecified; F32.A Depression, unspecified; Z20.822 Contact with and (suspected) exposure to COVID-19; Z86.16 Personal history of COVID-19
CPT/HCPCS: 01961; 36415; 64488; 82803; 85014; 85018; 86592; 86850; 86900; 86901; A9270-GY; J0690; J1100; J1885; J2274; J2370; J2405; J2590; J2795; J3490; U0002

== ENCOUNTER 2025-02-19 07:46 | Day surgery (SDC) | payer OTHER ==
[~2025-02-19 07:46] MED LIST: Albuterol 0.083% 2.5 MG/3 ML Neb Soln NEB PRN; Naloxone 0.4 MG/ML SDV IVPUSH PRN; Ondansetron 4 MG/2 ML SDV IVPUSH PRN; Sodium Chloride 0.9% 10 ML Syringe FLUSH PRN; Sodium Chloride 0.9% 2.5 ML Syringe FLUSH PRN; fentaNYL 50 MCG/ML SDV IVPUSH PRN
[2025-02-19] MEDS: Scopalamine 1mg/3day Transdermal Patch TOP ONE (08:00)
[2025-02-19] MEDS: Lactated Ringers 1,000 ML IV SCH (08:12)
[2025-02-19 08:16] LABS: MEAN PLATELET VOLUME 8.7 fL (9.4-12.3); NRBC ABSOLUTE 0.00 K/uL (0.00-0.02); NRBC PERCENT 0.0 /100WBC (0.0-0.2); PLATELET COUNT,PLT 267 K/uL (150-400); RED BLOOD CELL COUNT 4.87 M/uL (4.10-5.30); WHITE BLOOD CELL COUNT,WBC 11.17 K/uL (3.9-11.3)
[2025-02-19] MEDS ORDERED: Dexamethasone 4 MG/ML 5 ML MDV ONE (08:40)
[2025-02-19] MEDS ORDERED: Ondansetron 4 MG/2 ML SDV ONE (08:40)
[2025-02-19] MEDS ORDERED: Propofol 200 MG/20 ML SDV ONE (08:40)
[2025-02-19] MEDS ORDERED: Ketorolac 30 MG/ML SDV ONE (08:40)
[2025-02-19] MEDS ORDERED: fentaNYL 100 MCG/2 ML SDV ONE (08:40)
[2025-02-19 13:23] VITALS: BP 106/65; PULSE 85
== END 2025-02-19 10:57 | disposition home or self-care (01) ==
LOC: MW.SDS 07:46
PROVIDERS: ATTEND Obstetrics & Gynecology
DX: N85.8 Other specified noninflammatory disorders of uterus (principal); E66.9 Obesity, unspecified; Z68.41 Body mass index [BMI] 40.0-44.9, adult; Z86.16 Personal history of COVID-19; Z79.899 Other long term (current) drug therapy
CPT/HCPCS: 36415; 58563; 84703; 85027; A9270; J1885; J2003; J2405; J2704; J3010; J7120; J7999; 00952; C1729; J1100; J2371